=== PATIENT | male | born 1970 | race Caucasian/White ===

== ENCOUNTER 2021-02-25 12:40 | Emergency (ER) | payer OTHER, SELFPAY ==
[2021-02-25 12:57] VITALS: BP 132/79; PULSE 69; RESP 16; TEMP 36.8; O2SAT 100
--- NOTE | 2021-02-25 13:06 | ED.GENADULT ---
HPI - General Adult General Chief complaint: Eye Problems Stated complaint: BUMP ON L EYELID Time Seen by Provider: 02/25/21 13:07 Source: patient and RN notes reviewed Mode of arrival: ambulatory Limitations: no limitations History of Present Illness HPI narrative: 51-year-old male presents with complaints of swelling and redness to the edge of LT eyelid for the past 3 days. Collins reports increasing symptoms daily. OTC eye drops without relief. Believes it is a style. No redness to eye. No drainage. No blurred vision, double vision, sensation of foreign body, or pain of eye with movement. No exacerbating factors. No relieving factors. Wears reading glasses only. Denies fever. The patient reports he have not been diagnosed with COVID-19. The patient reports he received 2 doses of [employer] COVID-19 vaccines. The patient reports he is not waiting for the results of a COVID-19 lab test. The patient reports he do not have chills, weakness, or fatigue. The patient reports he do not have a new or worsening cough or shortness of breath. Denies chest pain. The patient reports he do not have any rhinorrhea, congestion, loss of taste or smell, sore throat, nausea, vomiting, abdominal pain, and diarrhea. Tolerating po intake well. Denies recent traveling. Denies concerns for COVID-19 or exposures been home with limited outdoor exposure except for essential household needs, work, and return home. At this time, patient is not suspected of having COVID-19. Some parts of this dictation were generated by voice recognition software and may contain typographical and/or grammatical inaccuracies. Related Data Home Medications Medication Instructions Recorded Confirmed Lacto.acidophilus-Bif.animalis 1 cap PO DAILY 02/25/21 02/25/21 [Daily Probiotic] carvedilol 3.125 mg PO BID 02/25/21 02/25/21 loratadine [Claritin] 10 mg PO DAILY 02/25/21 02/25/21 magnesium 800 mg PO DAILY 02/25/21 02/25/21 oxybutynin chloride 10 mg PO DAILY 02/25/21 02/25/21 sertraline 50 mg PO DAILY 02/25/21 02/25/21 tamsulosin 0.4 mg PO DAILY 02/25/21 02/25/21 Allergies Allergy/AdvReac Type Severity Reaction Status Date / Time No Known Allergies Allergy Unverified 02/25/21 12:46 Review of Systems Review of Systems: Narrative: CONSTITUTIONAL: Denies fever, chills, sweats. EYES: Denies visual changes, discharge. Complains of swelling and redness to the edge of LT eyelid. ENT: Denies rhinorrhea, congestion, sore throat, otalgia. CARDIOVASCULAR: Denies chest pain, palpitations, edema. RESPIRATORY: Denies dyspnea, wheezing, cough. GASTROINTESTINAL: Denies abdominal pain, nausea, vomiting, diarrhea. SKIN: Denies rash or itching. MUSCULOSKELETAL: Denies acute back pain, joint pain, or myalgia. NEUROLOGIC: Denies numbness or focal weakness. PSYCHIATRIC: Denies anxiety or depression. All systems reviewed & are unremarkable except as noted in HPI and below. [facility] Past Medical History Medical History (Updated 02/26/21 @ 00:01 by Jenny Brambila) Anxiety History of BPH History of electrophysiologic study Irregular heart beat Surgical History Surgical History (Updated 02/25/21 @ 14:57 by GLO Hughes) No significant past surgical history Family History Family History (Updated 02/25/21 @ 14:58 by GLO Hughes) Father History of kidney cancer Mother Alive and well Social History Social History (Updated 02/25/21 @ 14:59 by GLO Hughes) Smoking status: Never smoker Tobacco type: cigarettes Second hand tobacco smoke exposure: No Alcohol intake: former Alcohol use details: 15 years ago Substance use: never Substance use type: does not use Living arrangements: with family Occupation/Education: occupation Additional occupation/education comments: spouse Gender identity (if verbalized by the patient): Male Sexual Orientation (if Verbalized by the Patient): Straight or Heterosexual
== END 2021-02-25 13:39 | disposition home or self-care (01) ==
PROVIDERS: Emergency Provider Nurse Practitioner Family; PCP Nurse Practitioner Family
DX: H00.025 Hordeolum internum left lower eyelid (principal); N40.0 Benign prostatic hyperplasia without lower urinary tract symptoms; F41.9 Anxiety disorder, unspecified
CPT/HCPCS: 99213; G0463

== ENCOUNTER 2023-07-26 09:20 | Emergency (ER) | payer BC, SELFPAY ==
--- NOTE | 2023-07-26 09:21 | ED.GENADULT ---
HPI - General Adult General Chief complaint: Skin/Abscess/Foreign Body Stated complaint: Rash Time Seen by Provider: 07/26/23 09:21 Source: patient Mode of arrival: ambulatory Limitations: no limitations History of Present Illness HPI narrative: 53-year-old male patient presents to the [facility] with complaints of a rash to bilateral armpits for about 1 week. Patient states it is itchy. Patient states he has not changed any deodorants antiperspirants that he is aware of. 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 Denies fevers, body aches or chills. Related Data Home Medications Medication Instructions Recorded Confirmed Lactobacillus 1 cap PO DAILY 02/25/21 07/26/23 acidophilus-Bifidobac.animalis 2.5 billion cell capsule (Daily Probiotic) carvedilol 3.125 mg tablet 3.125 mg PO BID 02/25/21 07/26/23 loratadine 10 mg tablet (Claritin) 10 mg PO DAILY 02/25/21 07/26/23 magnesium 200 mg tablet 800 mg PO DAILY 02/25/21 07/26/23 oxybutynin chloride 10 mg 10 mg PO DAILY 02/25/21 07/26/23 tablet,extended release 24 hr sertraline 50 mg tablet 50 mg PO DAILY 02/25/21 07/26/23 tamsulosin 0.4 mg capsule 0.4 mg PO DAILY 02/25/21 07/26/23 Allergies Allergy/AdvReac Type Severity Reaction Status Date / Time No Known Allergies Allergy Verified 07/26/23 09:21 Review of Systems Review of Systems: CONSTITUTIONAL: Denies fever, chills, or sweats. EYES: Denies visual changes, redness, or discharge. ENT: Denies rhinorrhea, congestion, sore throat, or otalgia. CARDIOVASCULAR: Denies chest pain, palpitations, or edema. RESPIRATORY: Denies cough or dyspnea. GASTROINTESTINAL: Denies abdominal pain, nausea, vomiting, or diarrhea. GENITOURINARY: Denies dysuria or hematuria. SKIN: Positive rash with itching to bilateral inner arms x1 week. MUSCULOSKELETAL: Denies back pain, joint pain, or myalgia. NEUROLOGIC: Denies headache, numbness, or weakness. PSYCHIATRIC: Denies anxiety or depression. [facility] Past Medical History Medical History (Updated 07/26/23 @ 09:37 by GLO Taylor) Anxiety GERD (gastroesophageal reflux disease) History of BPH History of electrophysiologic study Irregular heart beat Sciatica Surgical History Surgical History (Updated 07/26/23 @ 09:22 by GLO Taylor) Hx of cardiac cath 2013 No significant past surgical history Family History Family History Father History of kidney cancer Mother Alive and well Social History Social History Smoking status: Never smoker Tobacco type: cigarettes Second hand tobacco smoke exposure: No Alcohol intake: former Alcohol use details: 15 years ago Substance use: never Substance use type: does not use Living arrangements: with family Occupation/Education: occupation 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 There is no relevant family history pertinent to the presenting complaint. Exam Narrative: GENERAL: Well-appearing, well-nourished, and in no acute distress. HEAD: Normocephalic, atraumatic. EYES: PERRLA and EOMI. ENT: Nares clear, no rhinorrhea or epistaxis. Mucous membranes moist. NECK: Supple. No lymphadenopathy CHEST: Clear to auscultation. No respiratory distress. HEART: Regular rate and rhythm. No murmur heard. Normal peripheral pulses. ABDOMEN: Soft, nontender, nondistended, normal active bowel sounds. EXTREMITIES: Normal range of motion. No edema. SKIN: Warm, dry, maculopapular rash noted to bilateral underarms with satellite areas. The areas or localize to the underarm areas. No ope
[2023-07-26 09:27] VITALS: BP 118/80; PULSE 66; RESP 16; TEMP 36.2; O2SAT 98
== END 2023-07-26 09:45 | disposition home or self-care (01) ==
PROVIDERS: Emergency Provider Nurse Practitioner Family; PCP Nurse Practitioner Family
DX: B35.4 Tinea corporis (principal); K21.9 Gastro-esophageal reflux disease without esophagitis
CPT/HCPCS: 99213; G0463

== ENCOUNTER 2023-08-09 16:02 | Emergency (ER) | payer BC, SELFPAY ==
--- NOTE | 2023-08-09 16:06 | ED.GENADULT ---
HPI - General Adult General Chief complaint: Skin/Abscess/Foreign Body Stated complaint: Rash Time Seen by Provider: 08/09/23 16:07 Source: patient, RN notes reviewed and old records reviewed Mode of arrival: ambulatory Limitations: no limitations History of Present Illness HPI narrative: 53-year-old male presents to the [facility] with continued rash to bilateral axillas. Patient was seen 2 weeks ago and started on clotrimazole. States that he has been showering, working in the heat and apply it once a day and sometimes twice a day. States the rash has gotten worse. Has not followed up with primary care provider Related Data Home Medications Medication Instructions Recorded Confirmed Lactobacillus 1 cap PO DAILY 02/25/21 08/09/23 acidophilus-Bifidobac.animalis 2.5 billion cell capsule (Daily Probiotic) carvedilol 3.125 mg tablet 3.125 mg PO BID 02/25/21 08/09/23 loratadine 10 mg tablet (Claritin) 10 mg PO DAILY 02/25/21 08/09/23 magnesium 200 mg tablet 800 mg PO DAILY 02/25/21 08/09/23 oxybutynin chloride 10 mg 10 mg PO DAILY 02/25/21 08/09/23 tablet,extended release 24 hr sertraline 50 mg tablet 50 mg PO DAILY 02/25/21 08/09/23 tamsulosin 0.4 mg capsule 0.4 mg PO DAILY 02/25/21 08/09/23 Allergies Allergy/AdvReac Type Severity Reaction Status Date / Time No Known Allergies Allergy Verified 08/09/23 16:06 Review of Systems Review of Systems: All systems reviewed & are unremarkable except as noted in HPI and below Constitutional: Constitutional: Reports no additional constitutional complaints Eyes: Eyes: Reports no additional eye complaints ENT: Reports system reviewed and no additional complaints, except as documented Cardiovascular: Cardiovascular: Reports no additional cardiovascular complaints, Denies chest pain and Denies dyspnea Respiratory: Respiratory: Reports no additional respiratory complaints, Denies chest congestion, Denies cough and Denies dyspnea Gastrointestinal: Gastrointestinal: Reports no additional gastrointestinal complaints, Denies abdominal pain, Denies nausea and Denies vomiting Musculoskeletal: Musculoskeletal: Reports no additional musculoskeletal complaints Integumentary/Breasts: Skin/Breast: Reports as per HPI, Reports pruritus and Reports rash (Bilateral axilla) Neurologic: Reports system reviewed and no additional complaints, except as documented Psychiatric: Psychiatric: Reports no additional psychiatric complaints Allergic/Immunologic: Allergic/Immunologic: Reports no additional allergic/immunologic complaints [facility] Past Medical History Medical History Anxiety GERD (gastroesophageal reflux disease) History of BPH History of electrophysiologic study Irregular heart beat Sciatica Surgical History Surgical History Hx of cardiac cath 2014 No significant past surgical history Family History Family History Father History of kidney cancer Mother Alive and well Social History Social History Smoking status: Never smoker Tobacco type: cigarettes Second hand tobacco smoke exposure: No Alcohol intake: former Alcohol use details: 15 years ago Substance use: never Substance use type: does not use Living arrangements: with family Occupation/Education: occupation 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 There is no relevant family history pertinent to the patient complaint. Exam Const: General: cooperative, healthy appearing, comfortable, no acute distres
[2023-08-09 16:10] VITALS: BP 126/81; PULSE 76; RESP 18; TEMP 36.4; O2SAT 97
== END 2023-08-09 16:33 | disposition home or self-care (01) ==
PROVIDERS: Emergency Provider Nurse Practitioner; PCP Nurse Practitioner Family
DX: B36.9 Superficial mycosis, unspecified (principal); K21.9 Gastro-esophageal reflux disease without esophagitis; H40.9 Unspecified glaucoma; F41.9 Anxiety disorder, unspecified
CPT/HCPCS: 99213; G0463

== ENCOUNTER 2025-01-12 00:42 | Day surgery (SDC) | payer BC, SELFPAY ==
[2024-12-29 14:27] VITALS: BMI 25.8
--- OUTSIDE RECORDS SUMMARY | 2025-01-12 00:45 | XMS_ITS | CONTINUITY OF CARE DOCUMENT ---
Author Name carine hawk Address Unknown Organization [facility] Address [address] [place] [address] Phone [phone] Care Team Providers Care Manager Client Service Name Role Phone Chacorta Kellogg MD Unavailable [phone] Sendy DRAGLINE ENGINEER-BC, Kiki Awan Unavailable [phone] Sendy DRAGLINE ENGINEER-BC, Kiki Awan Unavailable [phone] PROBLEMS Condition Status Date Provider Notes PHYSICAL EXAMINATION completed - Sa gerry Kellogg MD PVC'S active Chacorta Kellogg MD PALPITATIONS active Chacorta Kellogg MD Family Hx heart disease active Chacorta alejandra MD Erectile dysfunction active Chacorta diamond MD PAC's active Chacorta Kellogg MD Mitral regurgitation active Chacorta Cabello active Genny Faulkner PRODUCTION ESTIMATOR ENCOUNTERS Date Type Provider Location Encounter Diag nosis - In-person encounter Office Visit Chacorta Kellogg MD [facility] - In-person encounter Office Visit Chacorta Kellogg MD [facility] - In-person encounter Office Visit Chacorta Kellogg MD [facility] [place] - In-person encounter Office Visit Chacorta Kellogg MD [facility] - In-person encounter Office Visit Chacorta Kellogg MD [facility] - In-person encounter Office Visit Chacorta Kellogg MD [facility] - In-person encounter Office Visit Chacorta Kellogg MD [facility] - In-person encounter Office Visit Chacorta Kellogg MD [facility] - In-person encounter Office Visit Chacorta Kellogg MD [facility] PHYSICAL EXAMINATIONPAC'sMitral regurgitation - In-person encounter Office Visit Chacorta Kellogg MD [facility] - In-person encounter Office Visit Chacorta Kellogg MD [facility] Family Hx heart diseaseErectile dysfunction - In-person encounter Office Visit Chacorta Kellogg MD [facility] - In-person encounter Office Visit Chacorta Kellogg MD [facility] Office PVC'SPALPITATIONS VITAL SIGNS Date Observation Value Provider Body Mass Index (Ratio) 26.79 kg/m2 Moisés Lazaro blood pressure, cuff size regular Ke rri Babs blood pressure, diastolic 80 mm[Hg] Ke rri Babs blood pressure, systolic 122 mm[Hg] Sabine Brice oxygen saturation, oximetry 98 % Adrianna Brice respiratory rate E&M 12 /min Adrianna aquino pulse rate 83 /min Adrianna Morales er weight E&M 161 [lb_av] Adrianna Morales lder height E&M 65 [in_i] Adrianna garciaer weight E&M 164 [lb_av] Kat fabian Body Mass Index (Ratio) 27.29 kg/m2 Moisés Begumjose blood pressure, cuff size regular Ke rri Gruenenfelder blood pressure, diastolic 80 mm[Hg] Ke rri Gruenenfelder blood pressure, systolic 136 mm[Hg] Sabine ri Amandaelder oxygen saturation, oximetry 98 % Adrianna Ariannanfelder respiratory rate E&M 12 /min Adrianna G ruenenfelder pulse rate 70 /min Adrianna Grkhaie [facility] weight E&M 164 [lb_av] Adrianna Gruenenfe [facility] height E&M 65 [in_i] Adrianna Ariannanfe [facility] Body Mass Index (Ratio) 27.95 kg/m2 Vince Kellogg MD blood pressure, diastolic 86 mm[Hg] Li nkLogic blood pressure, systolic 129 mm[Hg] Chary kLog blood pressure, diastolic 86 mm[Hg] Irlanda mock Salgado blood pressure, systolic 129 mm[Hg] Stefano radha Austin oxygen saturation, oximetry 98 % Carmen Salgado pulse rate 81 /min Carmen watson weight E&M 168 [lb_av] Carmen watson respiratory rate E&M 16 /min Greta schreiber Austin blood pressure, cuff size large Irlanda mock Salgado height E&M 65 [in_i] Carmen watson Body Mass Index (Ratio) 26.46 kg/m2 Taclarisa nestor Estevez blood pressure, diastolic 80 mm[Hg] Li nkLogic blood pressure, systolic 110 mm[Hg] Chary kLogic blood pressure, cuff size large Ke rri Gruenenfeldnaomy blood pressure, diastolic 80 mm[Hg] Ke rri Garettueneakleelder blood pressure, systolic 110 mm[Hg] Sabine ri Amandaelder oxygen saturation, oximetry 96 % Adrianna Patelelder respiratory rate E&M 14 /min Adrianna Fabian ruenenfelder pulse rate 95 /min Adrianna Morales lder weight E&M 159 [lb_av] Adrianna Altanenfe lder height E&M 65 [in_i] Adrianna Patele er Body Mass Index (Ratio) 27.95 kg/m2 Samuel Mohamud blood pressure, diastolic 90 mm[Hg] Fe donaldo Son blood pressure, systolic 131 mm[Hg] Fel icia Son pulse rate 75 /min Jess Son oxygen saturation, oximetry 99 % Jess Son respiratory rate E&M 16 /min Jess Son weight E&M 168 [lb_av] Jess Son height E&M 65 [in_i] Jess Son Body Mass Index (Ratio) 27.62 kg/m2 Syd Mcdonald blood pressure, diastolic, standing 93 mm [Hg] Chacorta Kellogg MD blood pressure, systolic, standing 132 mm [Hg] Chacorta Kellogg MD oxygen saturation, oximetry 98 % Yumiko Taylor pulse rate 89 /min Yumiko Swan weight E&M 166 [lb_av] Yumiko Swan height E&M 65 [in_i] Yumiko Swan Body Mass Index (Ratio) 26.46 kg/m2 Colt Concepcion blood pressure, cuff size regular Ke rri Mandyer blood pressure, diastolic 80 mm[Hg] Ke rri Garettkhaieldnaomy blood pressure, systolic 130 mm[Hg] Sabine Patelgelacionaomy oxygen saturation, oximetry 98 % Adrianna Brice respiratory rate E&M 18 /min Ardianna Fabian josejosegelacioer pulse rate 81 /min Adrianna Morales er weight E&M 159 [lb_av] Adrianna Morales er height E&M 65 [in_i] Adrianna Morales er Body Mass Index (Ratio) 25.62 kg/m2 Vince Kellogg MD blood pressure, resting No [place] blood pressure, diastolic 88 mm[Hg] [facility], systolic 130 mm[Hg] Carl estevezn [place] oxygen saturation, oximetry 98 % [facility] rate E&M 16 /min [facility] pulse rate 78 /min [facility] weight E&M 154 [lb_av] [facility] height E&M 65 [in_i] [facility] blood pressure, diastolic 80 mm[Hg] Wong sidhu O'Ki blood pressure, systolic 130 mm[Hg] Lily ortiz O'Ki pulse rate 81 /min Grace O'Ki oxygen saturation, oximetry 99 % Grace O'Ki respiratory rate E&M 16 /min Grace O'Ki Body Mass Index (Ratio) 23.96 kg/m2 Jone blankenship O'Ki weight E&M 144 [lb_av] Grace O'Ki blood pressure, diastolic 90 mm[Hg] Caio 'hunter Azul blood pressure, systolic 120 mm[Hg] Alireza harrison Azul pulse rate 82 /min Caiohunter Azul oxygen saturation, oximetry 99 % Sandoval Grijalvadney respiratory rate E&M 18 /min Sandoval Grijalvadney Body Mass Index (Ratio) 24.29 kg/m2 Dean Grijalvadney weight E&M 146 [lb_av] Sandoval Liang Body Mass Index (Ratio) 22.63 kg/m2 Mar yJane Johnson blood pressure, diastolic 85 mm[Hg] Khoi Johnson blood pressure, systolic 126 mm[Hg] Christiano Johnson pulse rate 75 /min Enma Johnson oxygen saturation, oximetry 98 % Enma Johnson respiratory rate E&M 17 /min Enma Johnson weight E&M 136 [lb_av] Enma Johnson Body Mass Index (Ratio) 24.55 kg/m2 Altagracia kana Monson blood pressure, diastolic 83 mm[Hg] Na charis Monson blood pressure, systolic 128 mm[Hg] Alix gr Ermias pulse rate 90 /min Olamide Monson oxygen saturation, oximetry 98 % Olamide Ermias respiratory rate E&M 18 /min Olamide Ermias weight E&M 147 [lb_av] Olamide Ermias Body Mass Index (Ratio) 24.28 kg/m2 Ronald a Kulwant blood pressure, diastolic 66 mm[Hg] Fan means Rounds blood pressure, systolic 102 mm[Hg] Melissa kareem Rounds pulse rate 96 /min Sharita Rounds oxygen saturation, oximetry 99 % Sharita Blum respiratory rate E&M 18 /min Sharita rowland weight E&M 145.4 [lb_av] Sharita Kulwant height E&M 65 [in_i] Sharita Rounds ALLERGIES No Known Drug Allergies RESULTS Date Observation Value Provider Reference Range Interpretation Location 7 platelet count 163 10*3/mm3 Jayna Huang 7 hematocrit, blood 45.5 % Jayna Sal 7 international normalized ratio (INR) 1.8 Jayna Sal 7 creatinine, serum 0.90 mg/dL Jayna Sal 7 potassium, serum 4.1 mmol/L Jayna Sal 7 sodium, serum 139 mmol/L Jayna Huang HISTORY OF MEDICATION USE Medication Status Instructions Dates Provider Indications Com ments carvedilol 3.125 mg tablet active Take 1 tablet by mouth twice a day Adrianna Brice Cialis 10 mg tablet active 1 tablet once a day as needed Take 1 tablet 1 hour prior to sexual activity Genny Faulkner NP amoxicillin 500 mg capsule completed Take 1 capsule by mouth three times a day - Genny Faulkner NP carvedilol 3.125 mg tablet completed TAKE ONE TABLET BY MOUTH TWO TIMES a DAY - Adrianna Brice Acidophilus tablet,chewabl e active once a day Adrianna Brice Claritin Liqui-Gel 10 mg capsule active Take 1 once a day as needed Genny Faulkner NP sertraline 50 mg tablet active Take 1 tablet by mouth once a day Adrianna Brice #90, 90 days supply, Prescribed by NIKKY GREEN, Filled 08/11/2018 Flomax 0.4 mg capsule active once a day Grace O'Ki OXYBUTYNIN CHLORIDE TABLET active Take as directed Adrianna Brice CIALIS 20 MG ORAL TABLET completed take a 1/2 TAB. DAILY NEEDED - Chacorta Kellogg MD magnesium oxide 400 mg (241.3 mg magnesium) tablet active 1 tablet twice a day Chacorta Kellogg MD PVC'S NEXIUM 40 MG ORAL CAPSULE DELAYED RELEASE completed as directed - Adrianna Brice COUMADIN 5 MG ORAL TABLET completed - Olamide Monson CIALIS 20 MG ORAL TABLET completed one tab as needed - Olamide Monson ASPIRIN 81 MG ORAL TABLET completed ONE TAB. DAILY - Chacorta Kellogg MD carvedilol 3.125 mg tablet completed TAKE 1 TABLET BY MOUTH TWICE DAILY - Moisésking Pateljoseph SOCIAL HISTORY Date Observation Value Provider drug use none Moisés Pateljoseph passive cigarette sm valarie exposure no Moisés Begumjose smoking status Never smoker Moisés Begumjose smoking status Never smoker Genny Strattonshirley reeder PRODUCTION ESTIMATOR passive cigarette sm valarie exposure no Carmen Damian smoking status Never smoker Carmen Morgan social history E&M Children: 2 c maria r garcia with family/friends Smoking History: P atient has never smoked. Moisés Lazaro social history reviewed E&M revi ewed - no changes required Moisés Jamilhakenrick smoking status Never smoker Adrianna Delmy doss passive cigarette sm valarie exposure no Adrianna Babs smoking status Never smoker Zac buchanan social history E&M Children: 2 c maria r garcia with family/friends Smoking History: P atient has never smoked. Zac Mohamud social history reviewed E&M revi ewed - no changes required Zac Mohamud passive cigarette sm valarie exposure no Jess Son passive cigarette sm valarie exposure no Yumiko Taylor smoking status Never smoker Yumiko Martins social history reviewed E&M revi ewed - no changes required Yumiko Taylor number of grandchildren Chacorta Kellogg MD social history reviewed E&M revi ewed - no changes required Chacorta Kellogg MD social history E&M Children: 2 c maria r L jose with family/friends Smoking History: P atient has never smoked. Chacorta Kellogg MD drug use none Adrianna Andrew benz passive cigarette sm valarie exposure no Adrianna Bajwajimmie smoking status Never smoker Adrianna Brock selam social history E&M Children: 2 c maria r L jose with family/friends Smoking History: P atient has never smoked. Chacorta Kellogg MD drug use none Chacorta diamond MD passive cigarette sm valarie exposure no Chacorta Kellogg MD smoking status Never smoker Chacorta hunter MD social history reviewed E&M revi ewed - no changes required Chacorta Kellogg MD social history E&M Children: 2 c maria r L jose with family/friends Smoking History: P atient has never smoked. Chacorta Kellogg MD social history reviewed E&M revi ewed - no changes required Chacorta Kellogg MD smoking status Never smoker Grace Silva smoking/tobacco cess ation, patient education and counseling yes Chacorta Kellogg MD social history reviewed E&M reviewed Chacorta Kellogg MD social history E&M Michael heck: 2 children L jose with family/friends Chacorta Kellogg MD number of children 2 children Chacorta maurice MD drug use none Chacorta diamond MD passive cigarette sm valarie exposure no Chacorta Kellogg MD social history reviewed E&M reviewed Chacorta Kellogg MD smoking status never smoker Sharita Blum MENTAL STATUS Date Observation Value Provider assessment of judgme nt and insight E&M Alert and oriented to time, place and person. Mood and affect are normal. Chacorta Kellogg MD assessment of judgme nt and insight E&M Alert and oriented to time, place and person. Mood and affect are normal. Chacorta Kellogg MD FAMILY HISTORY Family Member Condition Mother Family History Unkno wn INSURANCE PROVIDERS Payer name Policy type / Coverage type [employer] red alliance party ID [facility] [id number] ADVANCE DIRECTIVES Name Date DISCUSSED - NO DECISION MADE TREATMENT PLAN Date Name Performer [id number],C,e cho 08/2022 EF 55%, trace MR, trace TR. will recheck in 1 year Genny Lucie SINCLAIR [id number],C, 1 week telesentry monitor: Rhythm; Sinus Rhythm with rare VE in the form of isolated beats. Rare SVE in the f orm of 2 couplets, and isolated beats. Palpitations, and 1 run of PSVT 17 beats @160 bpm observed. Fastest heart rate was 136 bpm, average heart rate was 80 bpm, and slowest heart rate was 53 bpm. Total VE beats: 90 (<0.1%), Total SVE beats: <0.1%. will recheck monitor in 1 year will check echo and routine stress test in 1 year. routine stress is to assess HR response to exercise Genny Faulkner NP [id number],C,w ill treat with amoxicillin 500mg TID x7 days. Chacorta Kellogg MD [id number],S,c ilais ordered prn Chacorta Kellogg MD [id number],C,E CHO: 08/2022 C ONCLUSIONS: 1 . Normal left ventricular systolic function. Normal left ventricular size. Normal left ventricular wall thickness. Normal left v entricular diastolic function. E/E': 5.2 Left ventricular ejection fraction is measured at 55 %. 2 . Normal appearing mitral valve leaflets. There is trace physiologic mitral valve regurgitation. 3 . Normal appearing tricuspid valve leaflets. There is trace physiologic tricuspid valve regurgitation. Right ventricular systolic p ressure is within normal limits. IVC is normal in size with normal respiratory response. Estimated peak pulmonary artery s ystolic pressure is 28.0 mmHg. Chacorta Kellogg MD [id number],C,1 Rhythm; Sinus Rhythm Occasional Sinus Tachycardia Rare VE in the form of couplet, and isolated beats Rare SVE in the form of triplet, couplet, and isolated beats Fastest rate: 140 bpm Average rate: 78 bpm Slowest rate: 54 bpm Total VE Beats: 73 (<1%) His updated medication list for this problem includes: Carvedilol 3.125 Mg Tablet (Carvedilol) ..... Take one tablet by mouth two times a day Chacorta Kellogg MD [id number],C,w ill treat with amoxicillin 500mg TID x7 days. Genny Faulkner NP [id number],C,c nancy ordered prn Genny Faulkner NP [id number],C,E CHO: 08/2022 C ONCLUSIONS: 1 . Normal left ventricular systolic function. Normal left ventricular size. Normal left ventricular wall thickness. Normal left v entricular diastolic function. E/E': 5.2 Left ventricular ejection fraction is measured at 55 %. 2 . Normal appearing mitral valve leaflets. There is trace physiologic mitral valve regurgitation. 3 . Normal appearing tricuspid valve leaflets. There is trace physiologic tricuspid valve regurgitation. Right ventricular systolic p ressure is within normal limits. IVC is normal in size with normal respiratory response. Estimated peak pulmonary artery s ystolic pressure is 28.0 mmHg. Genny Faulkner NP [id number],C, Rhythm; Sinus Rhythm Occasional Sinus Tachycardia Rare VE in the form of couplet, and isolated beats Rare SVE in the form of triplet, couplet, and isolated beats Fastest rate: 140 bpm Average rate: 78 bpm Slowest rate: 54 bpm Total VE Beats: 73 (<1%) His updated medication list for this problem includes: Carvedilol 3.125 Mg Tablet (Carvedilol) ..... Take one tablet by mouth two times a day Genny Faulkner NP [id number],C, W ore a 24 Hr Holter 08/2020 that showed sinus rhythm, rates 52- 111, avg 81 BPM, both PAC and PVC burden <0.1%. Moisésking Begum [id number],C, E cho 08/2020 showed mild MR Will repeat echo next year Moisésking Begum [id number],B, Moisés Begum i [id number],B, H ad EPS in 12/2013 showing rare PVCs, no inducible VT W ore a 24 Hr Holter 08/2020 that showed sinus rhythm, rates 52- 111, avg 81 BPM, both PAC and PVC burden <0.1%. L VEF 60% on echo 08/2020. [facility] Elect[facility] On License Of [facility] Electrophysiology:ho lter showed <0.1% on holter His updated medication list for this problem includes: Carvedilol 3.125 Mg Tablet (Carvedilol) ..... Take 1 tablet by mouth twice a day On License Of [facility] Electrophysiology:[facility] 07/2024 showed EF 55%, mild MR, mild TR, small pericardial effusion. On License Of [facility] Electrophysiology:de ninies any sxs currently, holter was overall normal His updated medication list for this problem includes: Carvedilol 3.125 Mg Tablet (Carvedilol) ..... Take 1 tablet by mouth twice a day On License Of [facility] Electrophysiology:ec 08/2022 EF 55%, trace MR, trace TR. will recheck in 1 year Genny Faulkner NP Electrophysiology: 1 week telesentry monitor: Rhythm; Sinus Rhythm with rare VE in the form of isolated beats. Rare SVE in the f orm of 2 couplets, and isolated beats. Palpitations, and 1 run of PSVT 17 beats @160 bpm observed. Fastest heart rate was 136 bpm, average heart rate was 80 bpm, and slowest heart rate was 53 bpm. Total VE beats: 90 (<0.1%), Total SVE beats: <0.1%. will recheck monitor in 1 year will check echo and routine stress test in 1 year. routine stress is to assess HR response to exercise Genny Faulkner NP Electrophysiology:wi ll treat with amoxicillin 500mg TID x7 days. Chacorta Kellogg MD Electrophysiology:jonas ball ordered prn Chacorta Kellogg MD Electrophysiology:EC HO: 08/2022 C ONCLUSIONS: 1 . Normal left ventricular systolic function. Normal left ventricular size. Normal left ventricular wall thickness. Normal left v entricular diastolic function. E/E': 5.2 Left ventricular ejection fraction is measured at 55 %. 2 . Normal appearing mitral valve leaflets. There is trace physiologic mitral valve regurgitation. 3 . Normal appearing tricuspid valve leaflets. There is trace physiologic tricuspid valve regurgitation. Right ventricular systolic p ressure is within normal limits. IVC is normal in size with normal respiratory response. Estimated peak pulmonary artery s ystolic pressure is 28.0 mmHg. Chacorta Kellogg MD Electrophysiology: Rhythm; Sinus Rhythm Occasional Sinus Tachycardia Rare VE in the form of couplet, and isolated beats Rare SVE in the form of triplet, couplet, and isolated beats Fastest rate: 140 bpm Average rate: 78 bpm Slowest rate: 54 bpm Total VE Beats: 73 (<1%) His updated medication list for this problem includes: Carvedilol 3.125 Mg Tablet (Carvedilol) ..... Take one tablet by mouth two times a day Chacorta Kellogg MD Electrophysiology:wi ll treat with amoxicillin 500mg TID x7 days. Genny Faulkner NP Electrophysiology:jonas ball ordered prn Genny Faulkner NP Electrophysiology:EC HO: 08/2022 C ONCLUSIONS: 1 . Normal left ventricular systolic function. Normal left ventricular size. Normal left ventricular wall thickness. Normal left v entricular diastolic function. E/E': 5.2 Left ventricular ejection fraction is measured at 55 %. 2 . Normal appearing mitral valve leaflets. There is trace physiologic mitral valve regurgitation. 3 . Normal appearing tricuspid valve leaflets. There is trace physiologic tricuspid valve regurgitation. Right ventricular systolic p ressure is within normal limits. IVC is normal in size with normal respiratory response. Estimated peak pulmonary artery s ystolic pressure is 28.0 mmHg. Genny Faulkner PRODUCTION ESTIMATOR Electrophysiology: Rhythm; Sinus Rhythm Occasional Sinus Tachycardia Rare VE in the form of couplet, and isolated beats Rare SVE in the form of triplet, couplet, and isolated beats Fastest rate: 140 bpm Average rate: 78 bpm Slowest rate: 54 bpm Total VE Beats: 73 (<1%) His updated medication list for this problem includes: Carvedilol 3.125 Mg Tablet (Carvedilol) ..... Take one tablet by mouth two times a day Genny Faulkner PRODUCTION ESTIMATOR Electrophysiology: W ore a 24 Hr Holter 08/2020 that showed sinus rhythm, rates 52- 111, avg 81 BPM, both PAC and PVC burden <0.1%. Moisés Lazaro Electrophysiology: E cho 08/2020 showed mild MR Will repeat echo next year Moisés Lazaro Electrophysiology Moisés Lazaro Electrophysiology: H ad EPS in 12/2013 showing rare PVCs, no inducible VT W ore a 24 Hr Holter 08/2020 that showed sinus rhythm, rates 52- 111, avg 81 BPM, both PAC and PVC burden <0.1%. L VEF 60% on echo 08/2020. Moisés Lazaro Electrophysiology:Echo 08/2020 s howed mild MR Zac Mohamud Electrophysiology:Blankenship d EPS in 12/2013 showing rare PVCs, no inducible VT W ore a 24 Hr Holter 08/2020 that showed sinus rhythm, rates 52- 111, avg 81 BPM, both PAC and PVC burden <0.1%. L VEF 60% on echo 08/2020. W ill have him follow up in 1 year with 48 Hr Holter at that time. Zac Dumontchanel Electrophysiology:Wo re a 24 Hr Holter 08/2020 that showed sinus rhythm, rates 52- 111, avg 81 BPM, both PAC and PVC burden <0.1%. Zac Dumontchanel Electrophysiology:Co nclusions: 1 . Normal left ventricular systolic function. Normal left ventricular size. There is impaired LV r elaxation. Normal E/E` 4.0. Left ventricular ejection fraction is estimated at 60 %. 2 . There is non-specific thickening of the mitral valve leaflets. Mild mitral valve regurgitation. 3 . There is mild tricuspid regurgitation.. Estimated peak pulmonary artery systolic pressure is normal. E lectronically signed by Chacorta Kellogg MD on 08/26/2018 at 7:24 PM Chacorta Kellogg MD Electrophysiology Chacorta burt MD Electrophysiology:In terpretation: R hythm: Sinus Rhythm A verage heart rate: 82bpm M aximum heart rate: 122bpm M inimum heart rate: 66bpm V E Count: 6 total beats. 0.1% burden. 6 isolated S VE Count: 30 total beats. 0.1% burden. 2 4 isolated 1 run 6 beats 1.9 seconds 200bpm @ 14:34:42 Chacorta Kellogg MD Electrophysiology Fo llow uo:Echo 08/26/18 showed EF 60%, mild MR, mild TR. Chacorta Kellogg MD Electrophysiology Fo llow uo:His updated medication list for this problem includes: Coreg 3.125 Mg Oral Tablet (Carvedilol) ..... One tab. twice daily Chacorta Kellogg MD [facility] monitor report 09/02/18 showed <1.0% PVC burden. Will check 24-hour Holter in 1 year. His updated medication list for this problem includes: Coreg 3.125 Mg Oral Tablet (Carvedilol) ..... One tab. twice daily Chacorta Kellogg MD Electrophysiology Chacorta burt MD Electrophysiology :R ecent ZIO Report P atient had a min HR of 50 bpm, max HR of 140 bpm, and avg HR of 83 b pm. Predominant underlying rhythm was Sinus Rhythm. Isolated SVEs w ere rare (<1.0%), SVE Couplets were rare (<1.0%), and no SVE Triplets w ere present. Isolated VEs were rare (<1.0%), and no VE Couplets or VE T riplets were present. Chacorta Kellogg MD EP faxed 08/29/16:Mild by echo i n 10/2015. Chacorta Kellogg MD EP faxed 08/29/16:Fer shah updated medication list for this problem includes: Coreg 3.125 Mg Tabs (Carvedilol) ..... One tab. twice daily Chacorta Kellogg MD EP faxed 08/29/16:Fer s updated medication list for this problem includes: Coreg 3.125 Mg Tabs (Carvedilol) ..... One tab. twice daily Chacorta Kellogg MD Cardiology Chacorta shah MD follow up faxed 10/17 05/30 0814: H is updated medication list for this problem includes: Coreg 3.125 Mg Tabs (Carvedilol) ..... One tab. twice daily Aspirin 81 Mg Tabs (Aspirin) ..... One tab. daily Orders: E KG ([id number]) S chedule Followup (*) H olter Monitor 24 Hr ([id number]) Chacorta Kellogg MD follow up faxed 10/17 05/30 0814: H is updated medication list for this problem includes: Coreg 3.125 Mg Tabs (Carvedilol) ..... One tab. twice daily Aspirin 81 Mg Tabs (Aspirin) ..... One tab. daily Orders: E KG ([id number]) S chedule Followup (*) H olter Monitor 24 Hr ([id number]) Chacorta Kellogg MD follow up faxed 10/17 05/30 0814: H is updated medication list for this problem includes: Coreg 3.125 Mg Tabs (Carvedilol) ..... One tab. twice daily Aspirin 81 Mg Tabs (Aspirin) ..... One tab. daily Orders: E KG ([id number]) S chedule Followup (*) Chacorta Kellogg MD follow up faxed 10/17 05/30 0814: H is updated medication list for this problem includes: Coreg 3.125 Mg Tabs (Carvedilol) ..... One tab. twice daily Aspirin 81 Mg Tabs (Aspirin) ..... One tab. daily Orders: E KG ([id number]) S chedule Followup (*) Chacorta Kellogg MD Date Name Monitor - Telemetry (Mobile Cardiac) Complete Echo Stress Routine Complete Echo Holter Monitor 48 hr Complete Echo Monitor - Telemetry (Mobile Cardiac) Complete Echo Holter Monitor 48 hr Complete Echo Holter Monitor 24 Hr Complete Echo Holter Monitor 24 Hr Complete Echo ZIO Holter Holter Monitor 24 Hr Complete Echo Holter Monitor 24 Hr Complete Echo Holter Monitor 24 Hr Complete Echo Holter Monitor 24 Hr ABLATION w/ Anesthes ia HISTORY OF PROCEDURES Procedure Date Procedure Name Provider Procedure Notes S tatus Complex e/m visit add on Chacorta Kellogg MD completed EKG Chacorta shah MD completed EKG Chacorta shah MD completed EKG Chacorta shah MD completed Holter, 24 or 48 Chacorta diamond MD completed EKG Chacorta shah MD completed EKG Chacorta shah MD completed EKG Chacorta shah MD completed Holter, 24 or 48 Chacorta diamond MD completed Schedule Followup Chacorta burt MD in 1 yr completed EKG Chacorta shah MD completed ZIO Holter Hookup Chacorta burt MD completed EKG ulius Anthony shah MD completed EKG ulius Anthony shah MD completed SNOMED-CT: [id number] Current Medications Documented ulius Bess HERNANDEZ completed ZIO Holter Hookup Chacorta burt MD completed EKG ulius Anthony shah MD completed SNOMED-CT: [id number] Current Medications Documented ulius Bess HERNANDEZ completed Holter, 24 or 48 ulius Shantanu diamond MD completed Schedule Followup ulius Magalys burt MD fu in 1 year completed EKG ulius Anthony shah MD completed SNOMED-CT: [id number] Current Medications Documented ulius Bess HERNANDEZ completed Schedule Followup ulius Magalys burt MD completed EKG ulius Anthony shah MD completed Schedule Followup ulius Magalys burt MD in 6 months with SK completed EKG ulius Anthony shah MD completed EKG Chacorta shah MD completed
--- OUTSIDE RECORDS SUMMARY | 2025-01-12 00:45 | XMS_ITS | Patient Health Summary ---
Author Organization [facility] Address [address] [place] [address] Care Team Providers Care Plasterer Tender Name Role Phone Unavailable Primary Care Provider Unavailabl e Note from [facility],non-owned Affiliates and Associated Physician Practices is amultiple site organization consisting of ambulatory clinics and hospital sitesin [place], [place], [place] and [place]. This disclosure is being madepursuant to the Care Everywhere program and may not contain all information available regarding this patient. Last updated 18.[facility] [employer] Allergies No known active allergies Medications * Be aware that medications may not be up to date on this document. Alwaysverify current medications with the patient. * cephALEXin (KEFLEX) 500 MG capsule * NAPROXEN PO Active Problems No known active problems Social History Tobacco Use Types Packs/Day Years Used Date Smoking Tobacco: Never Alcohol Use Standard Drinks/Week Comments No 0 (1 standard drink = 0.6 oz pur e alcohol) Sex and Gender Information Value Date Recorded Sex Assigned at Not on file Gender Identity Not on file Sexual Orientation Not on file Last Filed Vital Signs Vital Sign Reading Time Taken Comments Blood Pressure - - Pulse - - Temperature - - Respiratory Rate - - Oxygen Saturation - - Inhaled Oxygen Concentration - - Weight 64.9 kg (143 lb) 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
--- OUTSIDE RECORDS SUMMARY | 2025-01-12 00:45 | XMS_ITS | Clinical Summary ---
Author Organization [facility] Address [address] [place] [address] Care Team Providers Care Garden Implement Mechanic Name Role Phone Unavailable Primary Care Provider Unavailabl e Source Comments [facility],non-owned Affiliates and Associated Physician Practices is amultiple site organization consisting of ambulatory clinics and hospital sitesin [place], [place], [place] and [place]. This disclosure is being madepursuant to the Care Everywhere program and may not contain all information available regarding this patient. Last updated 18.[facility] [employer] Allergies No known active allergies Medications * Be aware that medications may not be up to date on this document. Alwaysverify current medications with the patient. 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 Plan of Treatment Health Maintenance Due Date Last Done Comments COLOGUARD (AGES 45-75) - COL ON CA SCREENING 1969 COLON MONITORING 1969 COLONOSCOPY - COLON CA SCREENING 1969 CT COLONOGRAPHY - COLON CA SCREENING 1969 Colorectal Cancer Screening 1969 FIT - COLON CA SCREENING 1969 FLEX SIG - COLON CA SCREENING 1969 LIPID TESTING 1969 HIV SCREENING 02/16/1984 HEPATITIS C SCREENING 02/11/1987 DTAP/TDAP/TD VACCINES (1 - Tdap) 02/16/1988 HEPATITIS B VACCINE (1 of 3 - 19+ 3-dose series) 02/16/1988 PNEUMOCOCCAL VACCINE 50+ (1 of 1 - PCV) 2019 ZOSTER VACCINE (1 of 2) 2019 COVID-19 VACCINE (1 - 2023-2 5 season) 2024 INFLUENZA VACCINE (#1) 2024 DEPRESSION SCREENING 11/17/2024 HIB VACCINE Aged Out No longer eligi ble based on patient's age to complete this topic HPV VACCINE Aged Out No longer eligi ble based on patient's age to complete this topic MENINGOCOCCAL (Group B) VACCINE Aged Out No longer eligible based on patient's age to complete this topic MENINGOCOCCAL VACCINE Aged Out No ally chance eligible based on patient's age to complete this topic PNEUMOCOCCAL VACCINE Aged Out No long er eligible based on patient's age to complete this topic
--- OUTSIDE RECORDS SUMMARY | 2025-01-12 00:45 | XMS_ITS | Data Portability ---
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 Plan of Treatment Reminders Order Date Submit Date Provider Last Modified By Organization Details Last Modified Time Details Appointments None recorded. Lab lipid panel, serum 2022 023 [facility] (Lab), [address] [place], [address], 3 14:40:09 TSH, serum or plasma 2022 023 [email or web address] [facility] (Lab), [address] [place], [address], 3 14:40:09 CBC w/ auto diff 2022 023 [email or web address] [facility] (Lab), [address] [place], [address], 3 14:40:08 vitamin B12, serum 2022 023 [email or web address] [facility] (Lab), [address] [place], [address], 3 14:40:08 PSA, serum or plasma 2022 023 [facility] (Lab), [address] [place], [address], 3 14:40:09 glycohemogl obin, total, blood 2022 023 [email or web address] [facility] (Lab), [address] [place], [address], 3 14:40:08 CMP, serum or plasma 2022 023 [email or web address] [facility] (Lab), [address] [place], [address], 3 14:40:08 Referral None recorded. Procedures None recorded. Surgeries None recorded. Imaging None recorded. Medication Orders tamsulosin 0.4 mg capsule 2023 024 FANSHAWE [id number], [address], [place], [id number], 4 14:28:27 sertraline 50 mg tablet 2022 023 [facility]ANSHAWE [id number], [address], [place], [id number], 3 16:30:41 sertraline 50 mg tablet 2022 023 [facility]ANSHAWE [id number], [address], [place], [id number], 3 11:23:07 Patient TargetsNo targets recorded. Patient Instructions Encounter Date Encounter Id Patient Instructions Last Modified By Organization Details Last Modified Time 02/05/2023 [id number] FU in 6 mo for anxiety, htn, allergies, gerd. Not available 02/05/2023 11:17:42 07/02/2023 [id number] 6 mo fu anxiety, htn, allergies, gerd, hemorrhoids. Not available 07/02/2023 16:36:07 08/27/2023 [id number] FU prn [email or web address] Not available 08/27 12:05:36 Reason for Referral None Reported. Results Created Date Observation Date Name Description Value Unit Range Abnormal Flag Note LastModifiedBy Organization Detail LastModifiedTime 12/17/19 24 12/17/2023 LIPID PANEL cholesterol 190 mg/dL 140-19 9 NIH ANANYA NSUS RECOM MENDA TION FOR JANINE STERO L: ADULT CHILD LOW RISK: <200 <170 BORDE RLINE : <200- 239 ----- HIGH RISK: >240 >200 Not Available [facility] (Lab) [address] [place], [address], 12/17/2023 14:36:14 12/17/19 24 12/17/2023 LIPID PANEL triglyceride s 73 mg/dL 0-150 NIH ANANYA NSUS REPOR T RECOM MENDA TION FOR TRIGL YCERI MANNIE: ADULT CHILD LOW RISK: <150 ----- BODER LINE: 150-1 99 ----- HIGH RISK: >200 ----- Not Available [facility] (Lab) [address] [place], [address], 12/17/2023 14:36:14 12/17/19 24 12/17/2023 LIPID PANEL HDL cholesterol 61 mg/dL 40- Not Available [facility] (Lab) [address] [place], [address], 12/17/2023 14:36:14 12/17/19 24 12/17/2023 LIPID PANEL LDL cholesterol, calculated 114 mg/dL 0-130 NIH ANANYA NSUS REPOR T RECOM MENDA TIONS FOR LDL: ADULT CHILD LOW RISK <130 <110 (OPTI MAL LDL) <100 ----- BORDE RLINE : 130-1 59 ----- HIGH RISK: >160 >130 A TRIGL YCERI DE RESUL T >400 INVAL IDATE S THE CALCU LATIO N FOR LDL FRACT IONAT ION - THE LDL RESUL T WILL NOT BE REPOR CARLIN. Not Available [facility] (Lab) [address] [place], [address], 12/17/2023 14:36:14 12/17/19 24 12/17/2023 COMPR EHENS LARISA METAB OLIC PANEL sodium 140 mmol/ L 137-14 5 Not Available [facility] (Lab) [address] [place], [address], 12/17/2023 14:36:18 12/17/19 24 12/17/2023 COMPR EHENS LARISA METAB OLIC PANEL potassium 4.3 mmol/ L 3.5-5. 1 Not Available [facility] (Lab) [address] [place], [address], 12/17/2023 14:36:18 12/17/19 24 12/17/2023 COMPR EHENS LARISA METAB OLIC PANEL chloride 108 mmol/ L 98-107 high Not Available [facility] (Lab) [address] [place], [address], 12/17/2023 14:36:18 12/17/19 24 12/17/2023 COMPR EHENS LARISA METAB OLIC PANEL carbon dioxide 25 mmol/ L 22-30 Not Available [facility] (Lab) [address] [place], [address], 12/17/2023 14:36:18 12/17/19 24 12/17/2023 COMPR EHENS LARISA METAB OLIC PANEL anion gap 11.3 mmol/ L 14-22 low Not Available [facility] (Lab) [address] [place], [address], 12/17/2023 14:36:18 12/17/19 24 12/17/2023 COMPR EHENS LARISA METAB OLIC PANEL glucose 95 mg/dL 70-99 Not Available [facility] (Lab) [address] [place], [address], 12/17/2023 14:36:18 12/17/19 24 12/17/2023 COMPR EHENS LARISA METAB OLIC PANEL BUN 17 mg/dL 8-19 Not Available [facility] (Lab) [address] [place], [address], 12/17/2023 14:36:18 12/17/19 24 12/17/2023 COMPR EHENS LARISA METAB OLIC PANEL creatinine 0.77 mg/dL 0.66-1 .25 Not Available [facility] (Lab) [address] [place], [address], 12/17/2023 14:36:18 12/17/19 24 12/17/2023 COMPR EHENS LARISA METAB OLIC PANEL GFR >60 Refer ence Range : [place] GFR Healt hy Adult : >60 mL/mi n/1.7 3 m2 Chron ic Kidne y Disea se: 15-60 mL/mi n/1.7 3 m2 Kidne y Failu re: <15/m L/min /1.73 m2 www.n iddk. nih.g ov The MDRD study equat ion has not been valid ated in child lara <18 years of age; pregn ant women ; the elder ly >85 years of age; or in some racia l or ethni c subgr oups, such as Hisri nics. Outsi de the valid ated jeromy eters , estim ated GFR is less accur ate, requi ring clini bayron judgm ent on a case- by-ca se basis . Clini bayron inter preta tion for other races and ages must be made by the clini jacquelin. The MDRD study equat ion has not been valid ated for the evalu ation of serum creat inine relat ed to nutri jerrell l statu s or medic ation usage . For perso ns <18 years of age, a pedia tric GFR calcu lator is avail able on the NKF websi te: https ://effie w.kid marysol.o rg/pr ofess ional s/kdo qi/gf r_cal culat or Not Available [facility] (Lab) [address] [place], [address], 12/17/2023 14:36:18 12/17/19 24 12/17/2023 COMPR EHENS LARISA METAB OLIC PANEL alkaline phosphatase 94 U/L 38-126 Not Available [facility] (Lab) [address] [place], [address], 12/17/2023 14:36:18 12/17/19 24 12/17/2023 COMPR EHENS LARISA METAB OLIC PANEL alanine aminotransfe rase 31 U/L 0-50 Not Available [facility] (Lab) [address] [place], [address], 12/17/2023 14:36:18 12/17/19 24 12/17/2023 COMPR EHENS LARISA METAB OLIC PANEL aspartate aminotransfe rase 37 U/L 15-46 Not Available [facility] (Lab) [address] [place], [address], 12/17/2023 14:36:18 12/17/19 24 12/17/2023 COMPR EHENS LARISA METAB OLIC PANEL bilirubin, total 0.60 mg/dL 0.20-1 .30 Not Available [facility] (Lab) [address] [place], [address], 12/17/2023 14:36:18 12/17/19 24 12/17/2023 COMPR EHENS LARISA METAB OLIC PANEL calcium 9.4 mg/dL 8.4-10 .2 Not Available [facility] (Lab) [address] [place], [address], 12/17/2023 14:36:18 12/17/19 24 12/17/2023 COMPR EHENS LARISA METAB OLIC PANEL total protein 7.2 g/dL 6.3-8. 2 Not Available [facility] (Lab) [address] [place], [address], 12/17/2023 14:36:18 12/17/19 24 12/17/2023 COMPR EHENS LARISA METAB OLIC PANEL albumin 4.0 g/dL 3.4-5. 0 Not Available [facility] (Lab) [address] [place], [address], 12/17/2023 14:36:18 12/17/19 24 12/17/2023 COMPR EHENS LARISA METAB OLIC PANEL globulin 3.2 g/dL 2.6-4. 2 Not Available [facility] (Lab) [address] [place], [address], 12/17/2023 14:36:18 12/17/19 24 12/17/2023 COMPR EHENS LARISA METAB OLIC PANEL A/G ratio 1.3 ratio 1.0-2. 0 Not Available [facility] (Lab) [address] [place], [address], 12/17/2023 14:36:18 12/17/19 24 12/17/2023 TSH W/REF JOSEMANUEL FT4 TSH with reflex free T4 1.130 uIU/m L 0.465- 4.680 Not Available [facility] (Lab) [address] [place], [address], 12/17/2023 14:40:38 12/17/19 24 12/17/2023 PSA SCREE N PSA medicare screen 1.39 NG/mL 0.00-4 .00 Not Available [facility] (Lab) [address] [place], [address], 12/17/2023 14:40:42 12/17/19 24 12/17/2023 VITAM IN B12 (TREE AIME ) vb12 405 pg/mL 239-93 1 Not Available [facility] (Lab) [address] [place], [address], 12/17/2023 15:26:54 08/18/20 23 08/18/2023 yuliana r monit or No observ ation record ed. [email or web address] [facility] [address], [place], [address], 08/20/2023 07:43:00 07/28/20 24 07/28/2024 exerc ise stres s test No observ ation record ed. [email or web address] [facility] [address], [place], [address], 07/29/2024 14:39:02 08/04/20 24 08/04/2024 US, echoc ardio gram No observ ation record ed. [email or web address] [facility] [address], [place], [address], 08/04/2024 17:46:56 Result Notes None recorded. Problems Name Problem SNOMED Code Status Onset Date Resolution Date Notes Provider Name and Address Organization Details Recorded Time Cellulitis 140624401 Completed Not Available [facility] 3 06:11:10 Nausea present 343631122 Completed Not Available [facility] 3 06:11:10 Increased frequency of urination 401694137 Active 2016 Not Available [facility] 3 06:11:10 Urinary incontinen ce 018409873 Completed Not Available [facility] 3 06:11:10 Painful urging to urinate 67969895 Completed Not Available [facility] 3 06:11:10 Gastroesop hageal reflux disease 897635718 Active Not Available [facility] 3 06:11:10 Eruption 046401696 Completed Not Available [facility] 3 06:11:11 Large testicle 439891091 Active Not Available [facility] 3 06:11:11 Low back pain 199526224 Completed Not Available [facility] 3 06:11:11 Pruritic disorder 923322230 Completed 04/21/2024 GLO Bryant [address] [facility], [facility] [address], [place], [address] , [place] [facility] [employer] 4 14:09:56 Seasonal allergic rhinitis 511667727 Active 2016 Not Available [facility] 3 06:11:11 Hypertensi ve disorder 86111741 Active Not Available [facility] 3 06:11:11 Dizziness 536861269 Completed Not Available [facility] 3 06:11:11 Anxiety 19757165 Active Not Available [facility] 3 06:11:11 Dysuria 74563744 Completed Not Available [facility] 3 06:11:11 Cough 91174577 Completed Not Available [facility] 3 06:11:11 Dyspnea on exertion 88575575 Completed Not Available [facility] 3 06:11:11 Nasal congestion 27657621 Completed Not Available [facility] 3 06:11:11 Hemorrhoid s 09976588 Active Not Available [facility] 3 06:11:11 Posterior rhinorrhea 93196821 Completed 04/21/2024 GLO Bryant [address], [place], [address] , [employer] 4 14:09:59 Palpitatio ns 59395820 Completed Not Available [facility] 3 06:11:11 Hyperglyce judy 03996827 Active Not Available [facility] 3 06:11:12 Neck pain 05444216 Completed Not Available [facility] 3 06:11:12 Fatigue 49420280 Completed Not Available [facility] 3 06:11:12 Cardiomyop athy 90105926 Active Not Available [facility] 3 06:11:12 Chronic rhinitis 78079474 Completed Not Available [facility] 3 06:11:12 Contact dermatitis 17021001 Completed 202204/21/2024 GLO Bryant [address], [address], [place], [address] , [employer] 4 14:09:53 Benign prostatic hyperplasi a 837731315 Active 2023 GLO Bryant [address], [place], [address] , [employer] 4 14:27:38 Problem Notes None recorded. Procedures Surgical History None recorded. Imaging Results Imaging Date Name Status LastModified by Organization Details LastModified Time 08/18/2023 holter monitor completed [email or web address] [facility] [address], [place], [address], 08/20/2023 07:43:00 07/28/2024 exercise stress test completed [email or web address] [facility] [address], [place], [address], 07/29/2024 14:39:02 08/04/2024 US, echocardiogram completed [email or web address] [facility] [address], [place], [address], 08/04/2024 17:46:56 Procedure Notes None recorded. Medical Equipment None Reported. Allergies No known drug allergies Medications Name Sig Start Date Stop Date Status Note LastModified by Organization Details LastModified Time amoxicillin 500 mg capsule TAKE 1 CAPSULE BY MOUTH THREE TIMES DAILY 01/03 completed Not Available Not Available Not Available oxybutynin chloride ER 10 mg tablet,exte nded release 24 hr TAKE 1 TABLET BY MOUTH EVERY DAY active Not Available Not Available No t Available prednisone 20 mg tablet TAKE 3 TABLETS BY MOUTH EVERY DAY FOR 5 DAYS 02/05 completed Not Available Not Available Not Available triamcinolo ne acetonide 0.5 % topical ointment APPLY AA 2-3 TIMES A DAY PRN FOR RASH active Not Available Not Available No t Available ciprofloxac in 500 mg tablet TK 1 T PO Q 12 H FOR 2 DAYS active Not Available Not Available No t Available sulfamethox azole 800 mg-trimetho prim 160 mg tablet active Not Available Not Available Not Available carvedilol 3.125 mg tablet TAKE 1 TABLET BY MOUTH TWICE DAILY active Not Available Not Available No t Available Zantac 150 mg tablet Take 1 tablet twice a day by oral route. 12/14 completed Not Available Not Available Not Available Mobic 15 mg tablet Take 1 tablet every day by oral route in the morning for 30 days. 11/04 completed Not Available Not Available Not Available erythromyci n 250 mg tablet 04/09 completed Not Available Not Available Not Available ofloxacin 0.3 % ear drops INSTILL 10 DROPS INTO RIGHT EAR DAILY FOR 7 DAYS 02/05 completed Not Available Not Available Not Available magnesium oxide 400 mg (241.3 mg magnesium) tablet TK 1 T PO BID 04/29 completed Not Available Not Available Not Available triamcinolo ne acetonide 0.025 % topical cream APPLY TOPICALLY TO THE AFFECTED AREA TWICE DAILY 04/21 completed Not Available Not Available Not Available tamsulosin 0.4 mg capsule TAKE 1 CAPSULE BY MOUTH DAILY 2024 active Not Available Not Available Not Avai lable dicyclomine 20 mg tablet TK ONE T PO Q 6 H PRN active Not Available Not Available No t Available benzonatate 100 mg capsule TAKE 1 CAPSULE BY MOUTH EVERY 8 HOURS NEEDED 02/05 completed Not Available Not Available Not Available desoximetas one 0.25 % topical ointment APPLY TO SKIN RASH TWICE DAILY TO NECK AND ARMPITS NEEDED 04/21 completed Not Available Not Available Not Available cephalexin 500 mg capsule TK 2 CS PO BID active Not Available Not Available No t Available erythromyci n 5 mg/gram (0.5 %) eye ointment APPLY 1/2 INCH RIBBON TO LEFT UPPER EYELID FOUR TIMES DAILY FOR 7 DAYS DIRECTED 02/05 completed Not Available Not Available Not Available neomycin-po lymyxin-dex ameth 3.5 mg/mL-10,00 0 unit/mL-0.1 % eye drops INSTILL 1 DROP INTO OS QID active Not Available Not Available No t Available polymyxin B sulfate 10,000 unit-trimet hoprim 1 mg/mL eye drops 06/23 completed Not Available Not Available Not Available oxybutynin chloride ER 5 mg tablet,exte nded release 24 hr TK 1 T PO D active Not Available Not Available No t Available montelukast 10 mg tablet Take 1 tablet every day by oral route in the evening for 30 days. active PRN Not Available Not Available No t Available mupirocin 2 % topical ointment APPLY TOPICALLY BID active Not Available Not Available No t Available diazepam 10 mg tablet TK 1 T PO 1 HOUR PRIOR TO PROCEDURE active Not Available Not Available No t Available ibuprofen 600 mg tablet active Not Available Not Available Not Available ketoconazol e 2 % topical cream APPLY TO SKIN RASH IN ARMPITS TWICE DAILY WHEN APPLYING DESOXIMET ASONE CREAM. 04/21 completed Not Available Not Available Not Available fluticasone propionate 50 mcg/actuati on nasal spray,suspe nsion Inhale 2 sprays every day by nasal route for 30 days. active prn Not Available Not Available No t Available clotrimazol e 1 % topical cream APPLY TOPICALLY TO THE AFFECTED AREA TWICE DAILY FOR 4 WEEKS 08/27 completed Not Available Not Available Not Available sertraline 50 mg tablet TAKE 1 TABLET BY MOUTH DAILY 2024 active Not Available Not Available Not Avai lable loratadine 10 mg tablet Take 1 tablet every day by oral route. 04/29 completed OTC Not Available Not Available Not Available amoxicillin 875 mg-potassiu m clavulanate 125 mg tablet TK 1 T PO Q 12 H FOR 7 DAYS active Not Available Not Available No t Available Colace 50 mg capsule Take 1 capsule twice a day by oral route as directed for 30 days. active Not Available Not Available No t Available Adult Low Dose Aspirin 81 mg tablet,lina yed release Take 1 tablet every day by oral route. 12/14 completed Not Available Not Available Not Available cyclobenzap rine 5 mg tablet TK 1 TO 2 TS PO TID PRN active Not Available Not Available No t Available tadalafil 10 mg tablet TAKE 1 TABLET BY MOUTH DAILY NEEDED FOR ERECTILE DYSFUNCTI ON. DO NOT EXCEED 20 MG IN 24 HOURS active Not Available Not Available No t Available Cialis 20 mg tablet TAKE 1 TABLET BY MOUTH PRIOR TO SEXUAL ACTIVITY DIRECTED 12/14 completed Not Available Not Available Not Available magnesium 800 MG A DAY 06/23 completed Not Available Not Available Not Available Afluria 5968-5481(P F) 45 mcg (15 mcg x 3)/0.5 mL intramuscul ar syringe ADM 0.5ML UTD active Not Available Not Available No t Available Nexium 24HR ONE A DAY 2014 active Not Available Not Available Not Avai lable Fluvirin 45 mcg (15 mcg x 3)/0.5 mL intramuscul ar suspension INJECT 0.5 ML INTRAMUSC ULARLY DIRECTED. active Not Available Not Available No t Available Fluvirin (PF) 45 mcg (15 mcg x 3)/0.5 mL intramuscul ar syringe ADM 0.5ML IM UTD active Not Available Not Available No t Available magnesium 200 mg (as magnesium oxide) tablet Take 2 tablets twice a day by oral route. 2021 active Not Available Not Available Not Avai lable ID NOW COVID-19 Test Kit TEST DIRECTED 02/28 completed Not Available Not Available Not Available Vitals Date Recorded Body height Body mass index (BMI) Body weight Body temperature Heart rate Heart rate Respiratory rate Oxygen saturation Oxygen saturation in Arterial blood by Pulse oximetry Systolic blood pressure Diastolic blood pressure Provider Name and Address Organization Details Last Updated DateTime 3 167.64 cm 26.7 kg/m2 60734.1 9 g 96.6 [degF] 71 /min 71 /min 16 /min 98 % 98 % 120 mm[Hg] 72 mm[Hg] Kiki Farias RN [facility] [employer] [facility] 3 10:57:35 Date Recorded Body height Body mass index (BMI) Body weight Body temperature Heart rate Respiratory rate Oxygen saturation Oxygen saturation in Arterial blood by Pulse oximetry Pain severity - 0-10 verbal numeric rating [Score] - Reported Systolic blood pressure Diastolic blood pressure Provider Name and Address Organization Details Last Updated DateTime 3 167.64 cm 26.2 kg/m2 49023.0 6 g 96.6 [degF] 77 /min 16 /min 95 % 95 % 0 136 mm[Hg] 82 mm[Hg] Kiki Farias RN [facility] [employer] [facility] 3 16:16:25 Date Recorded Body height Body mass index (BMI) Body weight Body temperature Heart rate Respiratory rate Oxygen saturation Oxygen saturation in Arterial blood by Pulse oximetry Pain severity - 0-10 verbal numeric rating [Score] - Reported Systolic blood pressure Diastolic blood pressure Provider Name and Address Organization Details Last Updated DateTime 3 167.64 cm 26.2 kg/m2 27589.3 1 g 96.3 [degF] 78 /min 16 /min 96 % 96 % 0 140 mm[Hg] 80 mm[Hg] Kiki Farias RN [facility] [employer] [facility] 3 11:40:08 Date Recorded Body height Provider Name an d Address Organization Details Last Updated DateTime 04/21/2024 167.64 cm [facility] [employer] [facility] 04/21/2024 13:59:33 Date Recorded Body mass index (BMI) Body weight Body temperature Heart rate Respiratory rate Oxygen saturation Oxygen saturation in Arterial blood by Pulse oximetry Pain severity - 0-10 verbal numeric rating [Score] - Reported Systolic blood pressure Diastolic blood pressure Provider Name and Address Organization Details Last Updated DateTime 4 24.7 kg/m2 82770.9 8 g 96.2 [degF] 72 /min 20 /min 99 % 99 % 0 130 mm[Hg] 82 mm[Hg] Kiki Farias RN [facility] [employer] [facility] 4 14:05:59 Social History Question Answer Notes LastModified by Organizat ion Details LastModified Time Tobacco Smoking Status Never Smoker Ruth rosales, [facility] [employer] [facility] 02/05/2023 10:47:01 Do You Have An Advance Directive? No [id number] Information not available 01/15/2023 What Is Your Level Of Alcohol Consumption? None [id number] Information not available 01/15/2023 Is Blood Transfusion Acceptable In An Emergency? Yes Information not available 02/05/2023 What Is Your Level Of Caffeine Consumption? Moderate [id number] Information not available 01/15/2023 How Much Tobacco Do You Chew? None [id number] Information not available 01/15/2023 What Is Your Code Status? Full Code Information not available 02/05/2023 In The 14 Days Before Symptom Onset, Have You Had Close Contact With A Laboratory-confi rmed COVID-19 While That Case Was Ill? No Information not available 02/05/2023 In The 14 Days Before Symptom Onset, Have You Had Close Contact With A Person Who Is Under Investigation For COVID-19 While That Person Was Ill? No Information not available 02/05/2023 Are You Currently Employed? Yes Information not available 02/05/2023 What Type Of Diet Are You Following? REGULAR [id number] Information not available 01/15/2023 Do You Or Have You Ever Used E-cigarettes Or Vape? 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 3 Information not available 02/05/2023 On Those Days That You Engage In Moderate To Strenuous Exercise, How Many Minutes, On Average, Do You Exercise? 30 Information not available 07/02/2023 Have There Been Any Changes To Your Family Or Social Situation? No Information not available 02/05/2023 Do You Use Insect Repellent Routinely? Yes Information not available 02/05/2023 Where Do You Live? [facility] Information not available 02/05/2023 Do You Have A Medical Power Of Watch Parts Grinder? No Information not available 02/05/2023 What Was The Date Of Your Most Recent Tobacco Screening? 04/29/2022 Information not available 02/05/2023 How Many Children Do You Have? 2 Information not available 02/05/2023 Do You Have Any Pets? No Information not available 02/05/2023 Do You Use Protection During Sex? No Information not available 02/05/2023 What Is Your Relationship Status? Information not available 02/05/2023 Do You Use Your Seat Belt Or Car Seat Routinely? Yes Information not available 02/05/2023 Are You Sexually Active? Yes Information not available 02/05/2023 Do You Have Smoke And Carbon Monoxide Detectors In Your Home? Yes Information not available 02/05/2023 Are You Passively Exposed To Smoke? No Information not available 02/05/2023 Do You Or Have You Ever Used Smokeless Tobacco? Never Used Smokeless Tobacco [id number] Information not available 01/15/2023 Are There Any Smokers In Your House? No Information not available 02/05/2023 How Much Tobacco Do You Smoke? No [id number] Information not available 01/15/2023 Do You Participate In Social Media? No Information not available 02/05/2023 What Types Of Sporting Activities Do You Participate In? Golf Information not available 07/02/2023 Do You Feel Stressed (tense, Restless, Nervous, Or Anxious, Or Unable To Sleep At Night)? [id number] Information not available 02/05/2023 Do You Use Any Illicit Or Recreational Drugs? No Information not available 02/05/2023 Do You Use Sunscreen Routinely? Yes Information not available 02/05/2023 Have You Recently Traveled Abroad? No Information not available 02/05/2023 Do You Have Any Dietary Restrictions? No Information not available 02/05/2023 Sex: Male Functional Status Question Answer Note LastModified by Organizat ion Details LastModified Time What is your exercise level? Occasional Information not available 02/05/2023 Mental Status None recorded. Family History Relationship Description Onset Age of this Age Resolved Age Notes LastModified by Organization Details LastModified Time Father Kidney disease 80 Not available 2022 16:13:28 Mother Anxiety disorder 20 Not available 2022 16:13:28 Mother Seizure 70 Not available 0 07/02/2023 16:13:28 Medical History Condition Response DEPRESSION (INCLUDING POST ) Y ERECTILE DYSFUNCTION Y Immunizations Vaccine Type Date Status Note Provider Nam e and Address Organization Details Recorded Time Influenza, split virus, quadrivalent, PF 3 completed Kiki Farias RN [facility] [place] [facility] 08/27/2023 12:15:19 SARS-COV-2 (COVID-19) vaccine, UNSPECIFIED 1 completed Not Available [facility] 01/15/2023 06:15:29 SARS-COV-2 (COVID-19) vaccine, UNSPECIFIED 1 completed Not Available [facility] 01/15/2023 06:15:29 SARS-COV-2 (COVID-19) vaccine, UNSPECIFIED 1 completed Not Available [facility] 01/15/2023 06:15:29 Influenza, split virus, trivalent, preservative 6 completed Not Available [facility] 01/15/2023 06:15:29 Tdap 6 completed Not Available [facility] 01/15/2023 06:15:29 Influenza, split virus, trivalent, preservative 4 completed Not Available [facility] 01/15/2023 06:15:29 Influenza, split virus, quadrivalent, PF 0 completed Not Available [facility] 01/15/2023 06:15:29 Influenza, split virus, quadrivalent, PF 8 completed Not Available [facility] 01/15/2023 06:15:29 Past Encounters Encounter ID Performer Location Encounter Start Date Encounter Closed Date Diagnosis/Indication Diagnosis SNOMED-CT Code Diagnosis ICD10 Code Diagnosis Note [id number] [address] [address] 02/28/2021 00:00:00 02/28/2021 18:23:[id number] [address] 04/09/2022 00:00:00 04/09/2022 12:05:23 [id number] [facility] [address], [address] [place] [address] 04/29/2022 00:00:00 05/06/2022 08:13:18 [id number] Kiki Kaba NP [address] [address] 02/05/2023 10:43:17 02/05/2023 11:34:26 Gastroesophageal reflux disease 888340464 K21.9 stable. Diet mods. Cardiomyopathy 00596014 I42.[address] ON Carvedilol 3.125 mg po bid. Has to see cardiologi st for work. Hypertensive disorder [address] On carvedilol 3.125 mg po bid. Seasonal a llergic rhinitis 757354777 J30.2 Stable. Anxiety 45652732 F41.9 sertraline 50 mg po daily. Hemorrhoids 88251050 K64 .9 Stable. [id number] Kiki Kaba NP [address] [address] 07/02/2023 16:06:05 07/02/2023 17:08:02 Hemorrhoids 17971440 K64.9 Otc preparatio n H cream. Not surgery candidate at this time. Pt agrees. Anxiety 12823814 F41.9 sertraline 50 mg po daily. Gastroesop hageal reflux disease 803648011 K21.9 stable. Diet mods. Seasonal a llergic rhinitis 887345628 J30.2 Stable. Anemia screening 2439843 07 Z13.0 Diabetes m ellitus screening 707576506 Z13.1 Thyroid di sorder screening 615193556 Z13.29 Hyperlipid emia screening 216036427 Z13.220 Screening for malignant neoplasm of prostate 488015628 Z12.5 [id number] Kiki Kaba NP [address] [address] 08/27/2023 11:25:49 08/27/2023 12:19:47 Administration of influenza vaccine 32393738 Z23 Contact dermatitis 32343 004 L25.9 Stable since stopping old spice deodorant. [id number] Stanley High MD [address] [address] 12/17/2023 09:56:22 12/17/2023 11:00:56 [id number] GLO Bryant [address] [address] 04/21/2024 13:56:44 04/21/2024 14:32:56 Benign prostatic hyperplasia 427967953 N40.1 Health Concerns Section Related Observation LastModified by Organization Detai ls LastModified Time None Recorded Concern Status LastModified by Organization Details LastModified Time None Recorded Advance Directives Directive N: Payers Encounter Date Sequence Insurance Name Policy Number Policy Dawson Covered Member ID Dawson Member ID Guarantor Name 02/05/2023 1 [place] [address] [id number] Collins Victor Hugo Karnish 07/02/2023 1 [place] [address] [id number] Collins Victor Hugo Karnish 08/27/2023 1 [place] [address] [id number] Collins Victor Hugo Karnish 12/17/2023 1 [place] [address] [id number] Collins Victor Hugo Karnish 04/21/2024 1 [place] ([place] [address]ish [id number] Collins Victor Hugo Karnish Notes Date Note Type Note Provider Name and Address Organization Details Recorded Time 02/05/2023 text/html Here for check u p. Seeing machine adjuster- Magnesium 400 mg po bid.Anxiety- Sertraline 50 mg po daily. Feeling well. 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 Feeling good with that amount of sleep. Kiki Kaba NP [address], [place], [address], [employer] 02/05/2023 11:26:52 07/02/2023 text/html Here to discuss hemorrhoids and a few other things. Has been trying to take magnesium to stay regular with BM. Every once and a while will have some blood on stool. Few days prior to blood in stool had blood in stool. Will also occur when eating spinach greens. No blood without having a bm.Using preparation H to keep hemorrhoids down. Pt believes colonoscopy done 2015 and fu in 10 years. Anxiety- stable. Needs sertraline refilled.Allergies- stable.Labs due in Sep/oct. Kiki Kaba NP [address], [address], [place], [address], [employer] 07/02/2023 16:40:09 08/27/2023 text/html Here for fu from rash. Went 2 times. Was on clotrimazole cream. Has stopped using deodorant for 1 mo.Has been on old spice deodorant and aware it has contributed to symptoms. After return the second time has been on triamcinolone and ketoconazole. Stopped hot showers and taking cold showers. Rash in armpits have gone away since then. No more itch. No longer burning. Kiki Kaba NP [address], [facility] [address], [place], [address], [facility] [employer] [facility] 08/27/2023 12:06:06 04/21/2024 text/html Collins Malin is a 54 year old male patient here today to [facility]. He was previously under the care of Valdemar Kaba DNP. His past medical history is significant for tachycardia. Pulse today is 72. He is currently taking carvedilol 3.125 mg PO BID. He does see cardiology ([facility]) annually. Denies chest pain, palpitations, SOB. He has increased urinary frequency. He is currently taking oxybutynin chloride 10 mg PO daily.Incomplete emptying tamsulosin 0.4 mg PO daily. He struggles with anxiety. He is currently taking sertraline 50 mg PO daily. He does take magnesium 800 mg OTC. Flu shot: OVID vaccines: 01/2021, 02/2021, 10/2021TDaP: 11/2015Colonoscopy: unsure, will call last GI doctorPSA: 1.39 (12/17/2023) GLO Bryant [address], [facility] [address], [place], [address], [facility] [employer] [facility] [employer] [facility] 04/21/2024 14:28:44
--- OUTSIDE RECORDS SUMMARY | 2025-01-12 00:45 | XMS_ITS | Referral Summary ---
Author Organization [facility] Address [address] [place] [address] Care Team Providers Care Sagger Soak Name Role Phone Unavailable Primary Care Provider Unavailabl e Source Comments [facility],non-owned Affiliates and Associated Physician Practices is amultiple site organization consisting of ambulatory clinics and hospital sitesin [place], [place], [place] and [place]. This disclosure is being madepursuant to the Care Everywhere program and may not contain all information available regarding this patient. 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
[2025-01-12 10:02] VITALS: BP 122/77; PULSE 70; RESP 16; TEMP 35.7; O2SAT 100; BMI 25.5
[2025-01-12] MEDS: LACTATED RINGERS 1,000 ML 150 ML IV CONT (10:14)
--- NOTE | 2025-01-12 10:40 | P.PNAN_ITS ---
Anes - Initial Pre Proc Eval Procedure: Operation Date: 01/12/25 11:00 Proposed Procedures p Screening Colonoscopy - Gordy Gill MD Date/Time: 01/12/25 10:40 Surgeon: Gordy Gill MD Pre Op Diagnosis: screening colon Patient Data Age: 54 Gender: M Height: 1.68 m Weight: 71.8 kg Last Vital Signs Temp 96.2 F L 01/12/25 10:02 Pulse 70 01/12/25 10:02 Resp 16 01/12/25 10:02 BP 122/77 01/12/25 10:02 Pulse Ox 100 01/12/25 10:02 O2 Del Method Room Air 01/12/25 10:02 Allergies Allergy/AdvReac Type Severity Reaction Status Date / Time No Known Allergies Allergy Verified 01/12/25 10:01 Home Medications ?Medication ?Instructions ?Recorded ?Confirmed ?Type Lactobacillus 1 cap PO DAILY 02/25/21 01/12/25 History acidophilus-Bifidobac.animalis 2.5 billion cell capsule (Daily Probiotic) magnesium 200 mg tablet 800 mg PO DAILY 02/25/21 01/12/25 History oxybutynin chloride 10 mg 10 mg PO DAILY 02/25/21 01/12/25 History tablet,extended release 24 hr tamsulosin 0.4 mg capsule 0.4 mg PO DAILY 02/25/21 01/12/25 History carvedilol 3.125 mg tablet 3.125 mg PO BID #180 tabs 07/07/24 01/12/25 Rx sertraline 50 mg tablet 50 mg PO DAILY #90 tabs 01/05/25 01/12/25 Rx Patient hx anesthesia problems: none Family hx anesthesia problems: none Results Review: All pre-operative results and documents have been reviewed as part of the pre- operative evaluation. [facility] Past Medical History Medical History Sciatica GERD (gastroesophageal reflux disease) History of electrophysiologic study History of BPH Irregular heart beat Anxiety Surgical History Surgical History History of colonoscopy Hx of cardiac cath 2014 Family History Family History Father History of kidney cancer Mother Cerebrovascular accident Grandparent Cerebrovascular accident Social History Social History Social History: 01/05/25 very confident with medical forms Smoking status: Never smoker Second hand tobacco smoke exposure: No Alcohol intake: current Alcohol use details: once a year Substance use: never Substance use type: does not use Do You Feel Safe in your Home?: Yes Lack of Transportation: No Lack of Food: Never True Current Housing: I Have Housing Concerned About Future Housing: No Difficulty Paying Gas/Electric Bills: No Currently Unemployed: No Education: High School Diploma/GED Difficulty w/ Childcare or Family Care: No Living arrangements: with family Additional living arrangements comments: Occupation/Education: occupation 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 Gender identity (if verbalized by the patient): Male Sexual Orientation (if Verbalized by the Patient): Straight or Heterosexual Spiritual care concerns: No Agree to blood products: Yes Anes - Eval Final PreProcedure Day of Procedure 01/12/25 10:40 Patient weight: overweight Lungs: normal air movement Airway: Mallampati scale class II Neurological: alert and oriented Last oral intake: >/= 8 hours ASA classification: II Emergent: no Anesthetic plan: proceed Anesthesia type and monitoring: general GIVS and standard monitoring Results Review: All pre-operative results and documents have been reviewed as part of the pre- operative evaluation. Hx of irreg heart beat, s/p EP study but no ablation. Pt exercises in his home gym most days, no cp or sob. Informed Consent: The patient's anesthetic plan and its attendant risks and benefits were discussed with the patient/family/POA. Questions were solicited and answers provided to the satisfaction of the patient/family/POA.
--- NOTE | 2025-01-12 10:58 | P.HP_ITS ---
H&P: HPI History of Present Illness Date/Time: 01/12/25 10:58 Chief Complaint: Screening colonoscopy Narrative: This is the patient's first colonoscopy. There are no GI symptoms and there is no family history of colorectal cancer. Review of Systems Review of Systems: All systems reviewed & are unremarkable except as noted in HPI and below PMFSH Past Medical History Medical History Sciatica GERD (gastroesophageal reflux disease) History of electrophysiologic study History of BPH Irregular heart beat Anxiety Surgical History Surgical History History of colonoscopy Hx of cardiac cath 2014 Family History Family History Father History of kidney cancer Mother Cerebrovascular accident Grandparent Cerebrovascular accident Social History Social History Social History: 01/05/25 very confident with medical forms Smoking status: Never smoker Second hand tobacco smoke exposure: No Alcohol intake: current Alcohol use details: once a year Substance use: never Substance use type: does not use Do You Feel Safe in your Home?: Yes Lack of Transportation: No Lack of Food: Never True Current Housing: I Have Housing Concerned About Future Housing: No Difficulty Paying Gas/Electric Bills: No Currently Unemployed: No Education: High School Diploma/GED Difficulty w/ Childcare or Family Care: No Living arrangements: with family Additional living arrangements comments: Occupation/Education: occupation 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 Gender identity (if verbalized by the patient): Male Sexual Orientation (if Verbalized by the Patient): Straight or Heterosexual Spiritual care concerns: No Agree to blood products: Yes Meds Home Medications and Allergies Home Medications ?Medication ?Instructions ?Recorded ?Confirmed ?Type Lactobacillus 1 cap PO DAILY 02/25/21 01/12/25 History acidophilus-Bifidobac.animalis 2.5 billion cell capsule (Daily Probiotic) magnesium 200 mg tablet 800 mg PO DAILY 02/25/21 01/12/25 History oxybutynin chloride 10 mg 10 mg PO DAILY 02/25/21 01/12/25 History tablet,extended release 24 hr tamsulosin 0.4 mg capsule 0.4 mg PO DAILY 02/25/21 01/12/25 History carvedilol 3.125 mg tablet 3.125 mg PO BID #180 tabs 07/07/24 01/12/25 Rx sertraline 50 mg tablet 50 mg PO DAILY #90 tabs 01/05/25 01/12/25 Rx Allergies Allergy/AdvReac Type Severity Reaction Status Date / Time No Known Allergies Allergy Verified 01/12/25 10:01 Vital Signs Vital Signs - 24 hr 01/12/25 10:02 Temperature 96.2 F L Pulse Rate 70 Respiratory Rate 16 Blood Pressure 122/77 Pulse Oximetry 100 Oxygen Delivery Room Air Exam Const: General: cooperative and healthy appearing Resp: Effort & Inspection: normal respiratory effort and able to speak in complete sentences Auscultation: clear to auscultation bilaterally Cardio: Rate: regular rate Rhythm: regular rhythm GI: Inspection: normal to inspection GI Palp: No No hepatosplenomegaly present Auscultation: normal bowel sounds Rectal Exam: deferred Skin: General skin exam: normal color Psych: Appearance: grossly normal Mental Status: mental status grossly normal Assessment and Plan Assessment and plan (1) Encounter for screening colonoscopy: Code(s): Z12.11 - Encounter for screening for malignant neoplasm of colon Status: Acute Assessment and Plan: The patient is deemed a good candidate for the procedure. Consent signed. Will proceed.
[2025-01-12 11:29] VITALS: BP 107/76; PULSE 74; RESP 18; O2SAT 100
[2025-01-12 11:39] VITALS: BP 107/75; PULSE 73; RESP 18; O2SAT 100
[2025-01-12 11:49] VITALS: BP 127/78; PULSE 69; RESP 18; O2SAT 100
== END 2025-01-12 12:06 | disposition home or self-care (01) ==
PROVIDERS: PCP Nurse Practitioner Family; Visit Provider Internal Medicine Gastroenterology
PROC: 0DJD8ZZ Inspection of Lower Intestinal Tract, Via Natural or Artificial Opening Endoscopic (ICD-10-PCS; CPT 45378; principal; 2025-01-12 11:00)
DX: Z12.11 Encounter for screening for malignant neoplasm of colon (principal); K21.9 Gastro-esophageal reflux disease without esophagitis; N40.0 Benign prostatic hyperplasia without lower urinary tract symptoms; F41.9 Anxiety disorder, unspecified; I49.9 Cardiac arrhythmia, unspecified; Z98.890 Other specified postprocedural states; Z98.61 Coronary angioplasty status; Z80.51 Family history of malignant neoplasm of kidney; Z82.49 Family history of ischemic heart disease and other diseases of the circulatory system
CPT/HCPCS: 45378; J2704; J7120

== ENCOUNTER 2025-05-09 16:46 | Emergency (ER) | payer BC, SELFPAY ==
[2025-05-09 16:53] VITALS: BP 128/81; PULSE 76; RESP 18; TEMP 36.3; O2SAT 98
--- NOTE | 2025-05-09 17:09 | ED.SKABFB ---
HPI - Skin/Abscess/Foreign Bdy General Chief complaint: Skin/Abscess/Foreign Body Stated complaint: Insect Bite on LT Ankle Time Seen by Provider: 05/09/25 17:01 Source: patient and RN notes reviewed Mode of arrival: ambulatory Limitations: no limitations History of Present Illness HPI narrative: Patient presents today complaining of an insect bite or sting to the left anterior ankle that was sustained 2 days ago at home while he was mowing. He is unsure what insect bit or stung him. Reports itching but no pain at this time. He has tried no [id number] interventions prior to arrival. History of MRSA. Related Data Home Medications ?Medication ?Instructions ?Recorded ?Confirmed ?Last Taken ?Type Lactobacillus 1 cap PO DAILY 02/25/21 05/09/25 01/11/25 History acidophilus-Bifidobac.animalis 2.5 billion cell capsule (Daily Probiotic) magnesium 200 mg tablet 800 mg PO DAILY 02/25/21 05/09/25 01/11/25 History oxybutynin chloride 10 mg 10 mg PO DAILY 02/25/21 05/09/25 01/11/25 History tablet,extended release 24 hr tamsulosin 0.4 mg capsule 0.4 mg PO DAILY 02/25/21 05/09/25 01/11/25 History Allergies Allergy/AdvReac Type Severity Reaction Status Date / Time No Known Allergies Allergy Verified 05/09/25 16:51 Review of Systems Review of Systems: CONSTITUTIONAL: Denies body aches, fever, chills, or sweats. EYES: Denies visual changes, redness, or discharge. ENT: Denies rhinorrhea, congestion, sore throat, or otalgia. CARDIOVASCULAR: Denies chest pain, palpitations, or edema. RESPIRATORY: Denies cough or dyspnea. GASTROINTESTINAL: Denies abdominal pain, nausea, vomiting, or diarrhea. GENITOURINARY: Denies dysuria or hematuria. SKIN: + insect bite/sting MUSCULOSKELETAL: Denies back pain, joint pain, or myalgia. NEUROLOGIC: Denies headache, numbness, tingling, or weakness. PSYCH: Denies depression or anxiety. [facility] Past Medical History Medical History Sciatica GERD (gastroesophageal reflux disease) History of electrophysiologic study History of BPH Irregular heart beat Anxiety Surgical History Surgical History History of colonoscopy Hx of cardiac cath 2014 Family History Family History Father History of kidney cancer Mother Cerebrovascular accident Grandparent Cerebrovascular accident Social History Social History Social History: 01/05/25 very confident with medical forms Smoking status: Never smoker Second hand tobacco smoke exposure: No Alcohol intake: current Alcohol use details: once a year Substance use: never Substance use type: does not use Do You Feel Safe in your Home?: Yes Lack of Transportation: No Lack of Food: Never True Current Housing: I Have Housing Concerned About Future Housing: No Difficulty Paying Gas/Electric Bills: No Currently Unemployed: No Education: High School Diploma/GED Difficulty w/ Childcare or Family Care: No Living arrangements: with family Additional living arrangements comments: Occupation/Education: occupation 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 Please see nursing chart for further information. There is no relevant family history pertinent to the presenting complaint Exam Narrative: GENERAL: Well-appearing, well-nourished, and in no acute distress. HEAD: Normocephalic, atraumatic. EYES: EOMI. No redness or drainage. Conjunctivae normal. ENT: Mucous membranes pink and moist. NECK: Normal AROM. CHEST: No respiratory distress. EXTREMITIES: Left ankle: 4 x 3 cm area of erythema to the anterior ankle without fluctuance or induration. Tiny puncture wound in the center. Nontender. Entire anterolateral ankle is erythematous and mildly edematous. Distal sensation intact. Capillary refill normal. Full range of motion. SKIN: Warm, dry, no rash. Capillary refill normal. Normal skin turgor. NEURO: No focal deficits. Alert and oriented x3. Gait steady. PSYCH: Normal affect. No signs of depression or anxiety. Course Course Level of Care: Express Care Visit Vital Signs Vital signs: Vital Signs Temperature 97.4 F L 05/09/25 16:53 Pulse Rate 76 05/09/25 16:53 Respiratory Rate 18 05/09/25 16:53 Blood Pressure 128/81 05/09/25 16:53 Pulse Oximetry 98 05/09/25 16:53 Oxygen Delivery Room Air 05/09/25 16:53 Temperature 97.4 F L 05/09/25 16:53 Pulse Rate 76 05/09/25 16:53 Respiratory Rate 18 05/09/25 16:53 Blood Pressure 128/81 05/09/25 16:53 Pulse Oximetry 98 05/09/25 16:53 Oxygen Delivery Room Air 05/09/25 16:53 Reviewed MDM - Skin/Abscess/Foreign Bdy MDM Narrative Medical decision making narrative: Patient is likely experiencing an allergic reaction to an insect bite/sting and will be treated with prednisone. Due to his history of MRSA and swelling to the area, he will also be treated with a course of antibiotics. Anticipatory guidance given. Differential Diagnosis Differential diagnosis: Likely abscess of skin or subcutaneous tissue, cellulitis, insect bites, impetigo and contact dermatitis Critical Care Time Critical Care Time Critical Care Time: No Discharge Plan Discharge Clinical Impression: Insect bite or sting Patient Disposition: Home Condition: Stable Instructions: Antibiotic Form, Insect Bite or Sting (ED) Additional Instructions: Please take the prednisone and Bactrim as directed. For itching you may try some topical hydrocortisone cream or calamine lotion. Follow-up with your PCP with any concerns or worsening symptoms. Your blood pressure was elevated above 120/80 today at Urgent Care. This puts you above the threshold for follow up. Please schedule a followup visit with your personal physician as soon as possible, for further evaluation and treatment. Even blood pressure exceeding 120/80 may indicate pre-hypertension. Patient Language: Malay Prescriptions: New sulfamethoxazole-trimethoprim [Bactrim DS] 800-160 mg tablet 1 tablet PO Q12H 7 Days Qty: 14 0RF prednisone 10 mg tablet 30 mg PO DAILY 3 Days Qty: 9 0RF No Action oxybutynin chloride 10 mg tablet extended release 24hr 10 mg PO DAILY tamsulosin 0.4 mg capsule 0.4 mg PO DAILY magnesium 200 mg Tablet 800 mg PO DAILY Daily Probiotic 2.5 billion cell Capsule 1 cap PO DAILY carvedilol 3.125 mg tablet 3.125 mg PO BID Qty: 180 1RF sertraline 50 mg tablet 50 mg PO DAILY Qty: 90 1RF Follow-up/Referrals: Kiki Kaba APRN [Primary Care Provider] - Time of Disposition: 17:16
== END 2025-05-09 17:18 | disposition home or self-care (01) ==
PROVIDERS: Emergency Provider Nurse Practitioner; PCP Nurse Practitioner Family
DX: S90.562A Insect bite (nonvenomous), left ankle, initial encounter (principal); W57.XXXA Bitten or stung by nonvenomous insect and other nonvenomous arthropods, initial encounter; K21.9 Gastro-esophageal reflux disease without esophagitis; N40.0 Benign prostatic hyperplasia without lower urinary tract symptoms; Z86.14 Personal history of Methicillin resistant Staphylococcus aureus infection
CPT/HCPCS: 99213; G0463

== ENCOUNTER 2025-09-29 18:39 | Emergency (ER) | payer BC, SELFPAY ==
--- OUTSIDE RECORDS SUMMARY | 2025-09-29 18:42 | XMS_ITS | Data Portability ---
Author Organization [facility] [employer], Main Office Address [address] [place] [address] Care Team Providers Care Warp Knitter Name Role Phone ROSINA NASSAR Primary Care Provider Assessment No assessment recorded. Plan of Treatment Reminders Order Date Submit Date Provider Last Modified By Organization Details Last Modified Time Details Appointments None recorded. Lab lipid panel, serum 2022 023 [facility] (Lab), [address] [place], [address], 3 14:40:09 TSH, serum or plasma 2022 023 [email or web address] [facility] (Lab), [address] [place], [address], 3 14:40:09 CBC w/ auto diff 2022 023 [email or web address] [facility] (Lab), [address] [place], [address], 3 14:40:08 vitamin B12, serum 2022 023 [email or web address] [facility] (Lab), [address] [place], [address], 3 14:40:08 PSA, serum or plasma 2022 023 [facility] (Lab), [address] [place], [address], 3 14:40:09 glycohemogl obin, total, blood 2022 023 [facility] (Lab), [address] [place], [address], 3 14:40:08 CMP, serum or plasma 2022 023 [email or web address] [facility] (Lab), [address] [place], [address], 3 14:40:08 Referral None recorded. Procedures None recorded. Surgeries None recorded. Imaging None recorded. Medication Orders tamsulosin 0.4 mg capsule 2023 024 [id number], [address], [place], [id number], 4 14:28:27 sertraline 50 mg tablet 2022 023 [id number], [address], [place], [id number], 3 16:30:41 sertraline 50 mg tablet 2022 023 [id number], [address], [place], [id number], 3 11:23:07 Patient TargetsNo targets recorded. Patient Instructions Encounter Date Encounter Id Patient Instructions Last Modified By Organization Details Last Modified Time 02/05/2023 [id number] FU in 6 mo for anxiety, htn, allergies, gerd. Not available 02/05/2023 11:17:42 07/02/2023 [id number] 6 mo fu anxiety, htn, allergies, gerd, hemorrhoids. Not available 07/02/2023 16:36:07 08/27/2023 [id number] FU prn [email or web address] Not available 08/27 12:05:36 [...] ----- HIGH RISK: >240 >200 Not Available [facility] (Lab) [address] [place], [address], 12/17/2023 14:36:14 12/17/19 24 12/17/2023 LIPID PANEL triglyceride s 73 mg/dL 0-150 NIH ANANYA NSUS REPOR T RECOM MENDA TION FOR TRIGL YCERI MANNIE: ADULT CHILD LOW RISK: <150 ----- BODER LINE: 150-1 99 ----- HIGH RISK: >200 ----- Not Available [facility] (Lab) [address] [place], [address], 12/17/2023 14:36:14 12/17/19 24 12/17/2023 LIPID PANEL HDL cholesterol 61 mg/dL 40- Not Available [facility] (Lab) [address] [place], [address], 12/17/2023 14:36:14 12/17/19 24 12/17/2023 LIPID PANEL [...] WILL NOT BE REPOR CARLIN. Not Available [facility] (Lab) [address] [place], [address], 12/17/2023 14:36:14 12/17/19 24 12/17/2023 COMPR EHENS LARISA METAB OLIC PANEL sodium 140 mmol/ L 137-14 5 Not Available [facility] (Lab) [address] [place], [address], 12/17/2023 14:36:18 12/17/19 24 12/17/2023 COMPR EHENS LARISA METAB OLIC PANEL potassium 4.3 mmol/ L 3.5-5. 1 Not Available [facility] (Lab) [address] [place], [address], 12/17/2023 14:36:18 12/17/19 24 12/17/2023 COMPR EHENS LARISA METAB OLIC PANEL chloride 108 mmol/ L 98-107 high Not Available [facility] (Lab) [address] [place], [address], 12/17/2023 14:36:18 12/17/19 24 12/17/2023 COMPR EHENS LARISA METAB OLIC PANEL carbon dioxide 25 mmol/ L 22-30 Not Available [facility] (Lab) [address] [place], [address], 12/17/2023 14:36:18 12/17/19 24 12/17/2023 COMPR EHENS LARISA METAB OLIC PANEL anion gap 11.3 mmol/ L 14-22 low Not Available [facility] (Lab) [address] [place], [address], 12/17/2023 14:36:18 12/17/19 24 12/17/2023 COMPR EHENS LARISA METAB OLIC PANEL glucose 95 mg/dL 70-99 Not Available [facility] (Lab) [address] [place], [address], 12/17/2023 14:36:18 12/17/19 24 12/17/2023 COMPR EHENS LARISA METAB OLIC PANEL BUN 17 mg/dL 8-19 Not Available [facility] (Lab) [address] [place], [address], 12/17/2023 14:36:18 12/17/19 24 12/17/2023 COMPR EHENS LARISA METAB OLIC PANEL creatinine 0.77 mg/dL 0.66-1 .25 Not Available [facility] (Lab) [address] [place], [address], 12/17/2023 14:36:18 12/17/19 24 12/17/2023 COMPR EHENS LARISA METAB OLIC PANEL GFR >60 Refer ence Range : [place] ge GFR Healt hy Adult : >60 [...] or ethni c subgr oups, such as Hisks nics. Outsi de the valid ated jeromy [...] calcu lator is avail able on the F websi te: https ://effie gregg.codie carcamo/pr saraess ional s/kdo qi/gf r_cal culat or Not Available [facility] (Lab) [address] [place], [address], 12/17/2023 14:36:18 12/17/19 24 12/17/2023 COMPR EHENS LARISA METAB OLIC PANEL alkaline phosphatase 94 U/L 38-126 Not Available [facility] (Lab) [address] [place], [address], 12/17/2023 14:36:18 12/17/19 24 12/17/2023 COMPR EHENS LARISA METAB OLIC PANEL alanine aminotransfe rase 31 U/L 0-50 Not Available [facility] (Lab) [address] [place], [address], 12/17/2023 14:36:18 12/17/19 24 12/17/2023 COMPR EHENS LARISA METAB OLIC PANEL aspartate aminotransfe rase 37 U/L 15-46 Not Available [facility] (Lab) [address] [place], [address], 12/17/2023 14:36:18 12/17/19 24 12/17/2023 COMPR EHENS LARISA METAB OLIC PANEL bilirubin, total 0.60 mg/dL 0.20-1 .30 Not Available [facility] (Lab) [address] [place], [address], 12/17/2023 14:36:18 12/17/19 24 12/17/2023 COMPR EHENS LARISA METAB OLIC PANEL calcium 9.4 mg/dL 8.4-10 .2 Not Available [facility] (Lab) [address] [place], [address], 12/17/2023 14:36:18 12/17/19 24 12/17/2023 COMPR EHENS LARISA METAB OLIC PANEL total protein 7.2 g/dL 6.3-8. 2 Not Available [facility] (Lab) [address] [place], [address], 12/17/2023 14:36:18 12/17/19 24 12/17/2023 COMPR EHENS LARISA METAB OLIC PANEL albumin 4.0 g/dL 3.4-5. 0 Not Available [facility] (Lab) [address] [place], [address], 12/17/2023 14:36:18 12/17/19 24 12/17/2023 COMPR EHENS LARISA METAB OLIC PANEL globulin 3.2 g/dL 2.6-4. 2 Not Available [facility] (Lab) [address] [place], [address], 12/17/2023 14:36:18 12/17/19 24 12/17/2023 COMPR EHENS LARISA METAB OLIC PANEL A/G ratio 1.3 ratio 1.0-2. 0 Not Available [facility] (Lab) [address] [place], [address], 12/17/2023 14:36:18 12/17/19 24 12/17/2023 TSH W/REF JOSEMANUEL FT4 TSH with reflex free T4 1.130 uIU/m L 0.465- 4.680 Not Available [facility] (Lab) [address] [place], [address], 12/17/2023 14:40:38 12/17/19 24 12/17/2023 PSA SCREE N PSA medicare screen 1.39 NG/mL 0.00-4 .00 Not Available [facility] (Lab) [address] [place], [address], 12/17/2023 14:40:42 12/17/19 24 12/17/2023 VITAM IN B12 (TREE AIME ) vb12 405 pg/mL 239-93 1 Not Available [facility] (Lab) [address] [place], [address], 12/17/2023 15:26:54 08/18/20 23 08/18/2023 yuliana r monit or No observ ation record ed. [email or web address] [facility] [address], [place], [address], 08/20/2023 07:43:00 07/28/20 24 07/28/2024 exerc ise stres s test No observ ation record ed. [email or web address] [facility] [address], [place], [address], 07/29/2024 14:39:02 08/04/20 24 08/04/2024 US, echoc ardio gram No observ ation record ed. [email or web address] [facility] [address], [place], [address], 08/04/2024 17:46:56 Result Notes None recorded. Problems Name Problem SNOMED Code Status Onset Date Resolution Date Notes Provider Name and Address Organization Details Recorded Time Cellulitis 257765858 Completed Not Available [facility] 3 06:11:10 Nausea present 512839379 Completed Not Available [facility] 3 06:11:10 Urinary incontinen ce 418705793 Completed Not Available [facility] 3 06:11:10 Painful urging to urinate 02921579 Completed Not Available [facility] 3 06:11:10 Gastroesop hageal reflux disease 128987697 Active Not Available [facility] 3 06:11:10 Eruption 820260533 Completed Not Available [facility] 3 06:11:11 Large testicle 170138317 Active Not Available [facility] 3 06:11:11 Low back pain 919821965 Completed Not Available [facility] 3 06:11:11 Pruritic disorder 674004180 Completed 04/21/2024 GLO Bryant [address] [facility], [facility] [address], [place], [address] , [place] [facility] [employer] 4 14:09:56 Hypertensi ve disorder 52103319 Active Not Available [facility] 3 06:11:11 Dizziness 335925192 Completed Not Available [facility] 3 06:11:11 Anxiety 04799262 Active Not Available [facility] 3 06:11:11 Dysuria 50547819 Completed Not Available [facility] 3 06:11:11 Cough 26470292 Completed Not Available [facility] 3 06:11:11 Dyspnea on exertion 37901223 Completed Not Available [facility] 3 06:11:11 Nasal congestion 79035142 Completed Not Available [facility] 3 06:11:11 Hemorrhoid s 09745496 Active Not Available [facility] 3 06:11:11 Posterior rhinorrhea 48639772 Completed 04/21/2024 GLO Bryant [address], [place], [address] , [employer] 4 14:09:59 Palpitatio ns 82602146 Completed Not Available [facility] 3 06:11:11 Hyperglyce judy 05604264 Active Not Available [facility] 3 06:11:12 Neck pain 65644833 Completed Not Available [facility] 3 06:11:12 Fatigue 98323691 Completed Not Available [facility] 3 06:11:12 Cardiomyop athy 62129084 Active Not Available [facility] 3 06:11:12 Chronic rhinitis 29296859 Completed Not Available [facility] 3 06:11:12 Increased frequency of urination 196168269 Active 2016 Not Available [facility] 3 06:11:10 Seasonal allergic rhinitis 141750997 Active 2016 Not Available [facility] 3 06:11:11 Contact dermatitis 84631358 Completed 202204/21/2024 GLO Bryant [address], [place], [address] , [employer] 4 14:09:53 Benign prostatic hyperplasi a 796772323 Active 2023 GLO Bryant [address], [place], [address] , [employer] 4 14:27:38 Problem Notes None recorded. Medical Equipment None Reported. [...] Not Available Not Available Not Available Afluria 3441-1563(P F) 45 mcg (15 mcg x 3)/0.5 mL intramuscul ar syringe ADM 0.5ML UTD active Not Available Not Available No t Available Nexium 24HR ONE A DAY 2014 active Not Available Not Available Not Avai lable Fluvirin 7888-2702 45 mcg (15 mcg x 3)/0.5 mL [...] in Arterial blood by Pulse oximetry Systolic And Diastolic Provider Name and Address Organization Details Last Updated DateTime 3 167.64 cm 26.7 kg/m2 97187.1 9 g 96.6 [degF] 71 /min 71 /min 16 /min 98 % 98 % 120/72 mm[Hg] Kiki Farias RN [facility] [employer] [facility] 3 10:57:35 Date Recorded Body mass index (BMI) Body weight Body temperature Heart rate Respiratory rate Oxygen saturation Oxygen saturation in Arterial blood by Pulse oximetry Pain severity - 0-10 verbal numeric rating [Score] - Reported Systolic And Diastolic Provider Name and Address Organization Details Last Updated DateTime 4 24.7 kg/m2 99602.9 8 g 96.2 [degF] 72 /min 20 /min 99 % 99 % 0 130/82 mm[Hg] Kiki Farias RN [facility] [employer] [facility] 4 14:05:59 Date Recorded Body height Provider Name an d Address Organization Details Last Updated DateTime 04/21/2024 167.64 cm [place] [facility] 04/21/2024 13:59:33 Date Recorded Body height Body mass index (BMI) Body weight Body temperature Heart rate Respiratory rate Oxygen saturation Oxygen saturation in Arterial blood by Pulse oximetry Pain severity - 0-10 verbal numeric rating [Score] - Reported Systolic And Diastolic Provider Name and Address Organization Details Last Updated DateTime 3 167.64 cm 26.2 kg/m2 39904.0 6 g 96.6 [degF] 77 /min 16 /min 95 % 95 % 0 136/82 mm[Hg] Kiki Farias RN [facility] [employer] [facility] 3 16:16:25 Date Recorded Body height Body mass index (BMI) Body weight Body temperature Heart rate Respiratory rate Oxygen saturation Oxygen saturation in Arterial blood by Pulse oximetry Pain severity - 0-10 verbal numeric rating [Score] - Reported Systolic And Diastolic Provider Name and Address Organization Details Last Updated DateTime 3 167.64 cm 26.2 kg/m2 70370.3 1 g 96.3 [degF] 78 /min 16 /min 96 % 96 % 0 140/80 mm[Hg] Kiki Farias RN [facility] [employer] [facility] 3 11:40:08 Social History Question Answer Notes LastModified by Organizat ion Details LastModified Time Tobacco Smoking Status Never Smoker Ruth rosales, [facility] [employer] [facility] 02/05/2023 10:47:01 Do You Have An Advance Directive? No [id number] Information not available 01/15/2023 Is Blood Transfusion Acceptable In An Emergency? Yes Information not available 02/05/2023 What Is Your Level Of Caffeine Consumption? Moderate [id number] Information not available 01/15/2023 How Much Tobacco Do You Chew? None [id number] Information not available 01/15/2023 What Is Your Code Status? Full Code Information not available 02/05/2023 In The 14 Days Before Symptom Onset, Have You Had Close Contact With A Laboratory-confir med COVID-19 While That Case Was Ill? No Information not available 02/05/2023 In The 14 Days Before Symptom Onset, Have You Had Close Contact With A Person Who Is Under Investigation For COVID-19 While That Person Was Ill? No Information not available 02/05/2023 What Type Of Diet Are You Following? REGULAR [id number] Information not available 01/15/2023 How Many Days Of Moderate To Strenuous Exercise, Like A Brisk Walk, Did You Do In The Last 7 Days? 3 Information not available 02/05/2023 On Those Days That You Engage In Moderate To Strenuous Exercise, How Many Minutes, On Average, Do You Exercise? 30 Information not available 07/02/2023 Have There Been Any Changes To Your Family Or Social Situation? No Information no t available 02/05/2023 Do You Use Insect Repellent Routinely? Yes Information not available 02/05/2023 Where Do You Live? [facility] Information not available 02/05/2023 Do You Have A Medical Power Of Dance Professor? No Information not available 02/05/2023 What Was [...] You Passively Exposed To Smoke? No Information no t available 02/05/2023 Are There Any Smokers In Your House? No Information not available 02/05/2023 How Much Tobacco Do You Smoke? No [id number] Information not available 01/15/2023 Do You Participate In Social Media? No Information not available 02/05/2023 What Types Of Sporting Activities Do You Participate In? Golf Information not available 07/02/2023 Do You Use Sunscreen Routinely? Yes Information not available 02/05/2023 Have You Recently Traveled Abroad? No Information not available 02/05/2023 Do You Have Any Dietary Restrictions? No Information not available 02/05/2023 Sex: Male Functional Status Question Answer Note LastModified by Organizat ion Details LastModified Time Do you use any illicit or recreational drugs? No Information not available 02/05/2023 What is your level of alcohol consumption? None [id number] Information not available 01/15/2023 Do you or have you ever used smokeless tobacco? Never used smokeless tobacco [id number] Information not available 01/15/2023 Are you currently employed? 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 Never used electronic cigarettes Information not available 02/05/2023 What is your exercise level? Occasional Information not available 02/05/2023 Mental Status Question Answer Note LastModified by Organization D etails LastModified Time Do you feel stressed (tense, restless, nervous, or anxious, or unable to sleep at night)? [id number] Information not available 02/05/2023 Family History Relationship Description Onset Age of [...] quadrivalent, PF 3 completed Kiki Farias RN [facility], [facility] [employer] 08/27/2023 12:15:19 SARS-COV-2 (COVID-19) vaccine, UNSPECIFIED 1 completed Not Available [facility] 01/15/2023 06:15:29 SARS-COV-2 (COVID-19) vaccine, UNSPECIFIED 1 completed Not Available [facility] 01/15/2023 06:15:29 SARS-COV-2 (COVID-19) vaccine, UNSPECIFIED 1 completed Not Available [facility] 01/15/2023 06:15:29 Influenza, split virus, trivalent, preservative 6 completed Not Available [facility] 01/15/2023 06:15:29 Tdap 6 completed Not Available [facility] 01/15/2023 06:15:29 Influenza, split virus, trivalent, preservative 4 completed Not Available [facility] 01/15/2023 06:15:29 Influenza, split virus, quadrivalent, PF 0 completed Not Available [facility] 01/15/2023 06:15:29 Influenza, split virus, quadrivalent, PF 8 completed Not Available [facility] 01/15/2023 06:15:29 Past Encounters Encounter ID Performer Location Encounter Start Date Encounter Closed Date Diagnosis/Indication Diagnosis SNOMED-CT Code Diagnosis ICD10 Code Diagnosis IMO Codes Diagnosis Note [id number] Stanley High MD [address] [address] 02/28/2021 00:00:00 02/28/2021 18:23:15 [id number] Stanley High MD [address] [address] 04/09/2022 00:00:00 04/09/2022 12:05:23 [id number] Abdulaziz Bryant NP [facility] [address] [address] 04/29/2022 00:00:00 05/06/2022 08:13:18 [id number] Kiki Kaba NP [address] [address] 02/05/2023 10:43:17 02/05/2023 11:34:26 Gastroesophageal reflux disease 228747142 K21.9 stable. Diet mods. Cardiomyopathy 22386482 I42.[address] ON Carvedilol 3.125 mg po bid. Has to see cardiologi st for work. Hypertensive disorder 38 432163 I[address] On carvedilol 3.125 mg po bid. Seasonal a llergic rhinitis 921534095 J30.2 Stable. Anxiety 13675262 F41.9 sertraline 50 mg po daily. Hemorrhoids 07749301 K64 .9 Stable. [id number] Kiki Kaba NP [address] [address] 07/02/2023 16:06:05 07/02/2023 17:08:02 Hemorrhoids 59622870 K64.9 Otc preparatio n H cream. Not surgery candidate at this time. Pt agrees. Anxiety 89898356 F41.9 sertraline 50 mg po daily. Gastroesop hageal reflux disease 756885099 K21.9 stable. Diet mods. Seasonal a llergic rhinitis 193536970 J30.2 Stable. Anemia screening 8944305 07 Z13.0 Diabetes m ellitus screening 296747694 Z13.1 Thyroid di sorder screening 821195750 Z13.29 Hyperlipid emia screening 249930280 Z13.220 Screening for malignant neoplasm of prostate 968005430 Z12.5 [id number] Kiki Kaba NP [address] [address] 08/27/2023 11:25:49 08/27/2023 12:19:47 Administration of influenza vaccine 28675940 Z23 Contact dermatitis 85964 004 L25.9 Stable since stopping old spice deodorant. [id number] Stanley High MD [address] [address] 12/17/2023 09:56:22 12/17/2023 11:00:56 [id number] Stanley High MD [address] [address] 04/21/2024 13:56:44 04/21/2024 14:32:56 Benign prostatic hyperplasia 441711268 N40.1 Health Concerns Section Related Observation LastModified by Organization Detai ls LastModified Time None Recorded Concern Status LastModified by Organization Details LastModified Time None Recorded Advance Directives Directive N: Payers Insurance Date Sequence Insurance Name Policy Number Policy Dawson Covered Member ID Dawson Member ID Guarantor Name 02/05/2023 1 [place] 113 Ivy Malin [id number] Collins Malin 04/19/2024 1 [place] 113 Ivy Malin [id number] Collins Malin Notes Date Note Type Note Provider Name and Address Organization Details Recorded Time 02/05/2023 text/html Here for check up. Seeing habilitation assistant- Magnesium 400 mg po bid.Anxiety- Sertraline 50 mg po daily. Feeling well. 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 Feeling good with that amount of sleep. Kiki Kaba NP [address] [address], [place], [address], [facility] [email or web address] 02/05/2023 11:26:52 07/02/2023 text/html Here to discuss [...] due in Sep/oct. Kiki Kaba NP [address], [place], [address], [employer] 07/02/2023 16:40:09 08/27/2023 text/html Here for fu [...] longer burning. Kiki Kaba NP [address], [place], [address], [employer] 08/27/2023 12:06:06 04/21/2024 text/html Collins Malin is a 54 year old male patient here today to tranistion care. He was previously under the care of [...] will call last GI doctorPSA: 1.39 (12/17/2023) Rosina Nassar, APPRENTICE EMBALMER [address] [facility], [facility] [address], [place], [address], [facility] 04/21/2024 14:28:44
[2025-09-29 18:49] VITALS: BP 131/76; PULSE 93; RESP 18; TEMP 36.5; O2SAT 96
--- NOTE | 2025-09-29 19:48 | ED_ITS ---
HPI - Ear Problem General Chief complaint: Ear Stated complaint: L Ear Time Seen by Provider: 09/29/25 18:55 Source: patient and RN notes reviewed Mode of arrival: ambulatory Limitations: no limitations History of Present Illness HPI Narrative: Patient presents today complaining of left ear pain and muffling since yesterday. Denies any additional symptoms to include congestion, rhinorrhea, headache, sore throat, cough, drainage from the ear. He has been taking Tylenol severe. History of tinnitus that has been worse since the pain and muffling began. Related Data Home Medications ?Medication ?Instructions ?Recorded ?Confirmed ?Last Taken ?Type Lactobacillus 1 cap PO DAILY 02/25/2107/1801/11/25 History acidophilus-Bifidobac.animalis 2.5 billion cell capsule (Daily Probiotic) magnesium 200 mg tablet 800 mg PO DAILY 02/25/2109/1001/11/25 History oxybutynin chloride 10 mg 10 mg PO DAILY 02/25/2107/1801/11/25 History tablet,extended release 24 hr tamsulosin 0.4 mg capsule 0.4 mg PO DAILY 02/25/2109/1001/11/25 History Allergies Allergy/AdvReac Type Severity Reaction Status Date / Time No Known Allergies Allergy Verified 09/29/25 18:48 [facility] Past Medical History Medical History Sciatica GERD (gastroesophageal reflux disease) History of electrophysiologic study History of BPH Irregular heart beat Anxiety Surgical History Surgical History History of colonoscopy Hx of cardiac cath 2014 Family History Family History Father History of kidney cancer Mother Cerebrovascular accident Grandparent Cerebrovascular accident Social History Social History Social History: 01/05/25 very confident with medical forms Smoking status: Never smoker Second hand tobacco smoke exposure: No Alcohol intake: current Alcohol use details: once a year Substance use: never Substance use type: does not use Do You Feel Safe in your Home?: Yes Lack of Transportation: No Lack of Food: Never True Current Housing: I Have Housing Concerned About Future Housing: No Difficulty Paying Gas/Electric Bills: No Currently Unemployed: No Education: High School Diploma/GED Difficulty w/ Childcare or Family Care: No Living arrangements: with family Additional living arrangements comments: Occupation/Education: occupation 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 Please see nursing chart for further information. There is no relevant family history pertinent to the presenting complaint Exam Narrative: GENERAL: Well-appearing, well-nourished, and in no acute distress. HEAD: Normocephalic, atraumatic. EYES: EOMI. No redness or drainage. Conjunctivae normal. ENT: Mucous membranes pink and moist. Nares clear. No rhinorrhea. Bilateral TMs are monsivais and dull. No erythema, air-fluid line, bubbles. Throat normal. U vula midline. NECK: Normal AROM. Supple. No lymphadenopathy. CHEST: No respiratory distress. EXTREMITIES: Normal range of motion. No edema. SKIN: Warm, dry, no rash. Capillary refill normal. Normal skin turgor. NEURO: No focal deficits. Alert and oriented x3. Gait steady. PSYCH: Normal affect. No signs of depression or anxiety. Course Course Level of Care: Express Care Visit Vital Signs Vital signs: Vital Signs Temperature 97.7 F 09/29/25 18:49 Pulse Rate 93 09/29/25 18:49 Respiratory Rate 18 09/29/25 18:49 Blood Pressure 131/76 09/29/25 18:49 Pulse Oximetry 96 09/29/25 18:49 Oxygen Delivery Room Air 09/29/25 18:49 Temperature 97.7 F 09/29/25 18:49 Pulse Rate 93 09/29/25 18:49 Respiratory Rate 18 09/29/25 18:49 Blood Pressure 131/76 09/29/25 18:49 Pulse Oximetry 96 09/29/25 18:49 Oxygen Delivery Room Air 09/29/25 18:49 Reviewed Medical Decision Making MDM Narrative Medical decision making narrative: Patient presents today complaining of left ear pain and muffling since yesterday. Denies any additional symptoms to include congestion, rhinorrhea, headache, sore throat, cough, drainage from the ear. He has been taking Tylenol severe. History of tinnitus that has been worse since the pain and muffling began. Upon exam, patient has bilateral TMs are monsivais and dull without indications of acute bacterial infection. Recommend trying some Flonase to see if this will help with the muffling. Recommend PCP or ENT follow-up if symptoms persist. Patient agrees with plan. Vital signs stable. Anticipatory guidance given. Differential Diagnosis Differential Diagnosis: Otitis media, otitis externa, ruptured TM, serous otitis, cerumen impaction Vital Signs Vital Signs: Vital Signs Temperature 97.7 F 09/29/25 18:49 Pulse Rate 93 09/29/25 18:49 Respiratory Rate 18 09/29/25 18:49 Blood Pressure 131/76 09/29/25 18:49 Pulse Oximetry 96 09/29/25 18:49 Oxygen Delivery Room Air 09/29/25 18:49 Temperature 97.7 F 09/29/25 18:49 Pulse Rate 93 09/29/25 18:49 Respiratory Rate 18 09/29/25 18:49 Blood Pressure 131/76 09/29/25 18:49 Pulse Oximetry 96 09/29/25 18:49 Oxygen Delivery Room Air 09/29/25 18:49 Critical Care Time Critical Care Time Critical Care Time: No Discharge Plan Discharge Clinical Impression: Acute pain of left ear Patient Disposition: Home Condition: Stable Additional Instructions: Your ear exam is negative for infection or large collections of fluid. You may want to try some Flonase to see if this will help equalize your ears and help your symptoms. Follow-up with your PCP or ENT in 1 week if symptoms are not improving. Patient Language: Colombian Prescriptions: No Action oxybutynin chloride 10 mg tablet extended release 24hr 10 mg PO DAILY tamsulosin 0.4 mg capsule 0.4 mg PO DAILY magnesium 200 mg Tablet 800 mg PO DAILY Daily Probiotic 2.5 billion cell Capsule 1 cap PO DAILY carvedilol 3.125 mg tablet 3.125 mg PO BID Qty: 180 1RF sertraline 50 mg tablet 50 mg PO DAILY Qty: 90 1RF Follow-up/Referrals: Kiki Kaba APRN [Primary Care Provider, [facility]] Time of Disposition: 19:04
== END 2025-09-29 19:06 | disposition home or self-care (01) ==
PROVIDERS: Emergency Provider Nurse Practitioner; PCP Nurse Practitioner Family
DX: H92.02 Otalgia, left ear (principal); N40.0 Benign prostatic hyperplasia without lower urinary tract symptoms; K21.9 Gastro-esophageal reflux disease without esophagitis; F41.9 Anxiety disorder, unspecified
CPT/HCPCS: 99211; G0463